=== PATIENT | male | born 2005 | race African-American/Black ===

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

== ENCOUNTER 2024-09-25 14:31 | Inpatient (IN) | payer BC, MEDICAID, SELFPAY ==
--- NOTE | ~2024-09-25 | US_ITS ---
CLINICAL HISTORY: abnormal LFTs --- Additional Notes or Special Instructions: psychosis patient US abdomen limited Comparison: None provided Findings: The visualized pancreas is normal. The aorta and inferior vena cava are normal caliber. The liver measures 17 cm in length. There is no focal liver abnormality. There is no intrahepatic bile duct dilatation. The common duct is 3 mm in diameter. The gallbladder is normal. There is no sonographic Guan sign. The main portal vein is antegrade. The right kidney is 9.9 cm in length. No ascites. IMPRESSION: There may be a mild degree of hepatomegaly. This document has been electronically signed by: Clotilde Snider MD on 09/25/2024 18:22:35
--- NOTE | ~2024-09-25 | XR_ITS ---
EXAMINATION: XR ELBOW, LEFT CLINICAL INFORMATION: Elbow swelling COMPARISON: None available. TECHNIQUE: AP, lateral, and oblique views of the left elbow. FINDINGS: No acute cortical disruption or malalignment. No lytic or blastic lesions. No subcutaneous emphysema. No gross joint effusion. No metallic or radiopaque foreign body. XR/XR elbow LT min 3V IMPRESSION: No acute fracture or dislocation. Electronically signed by: Deondre Queen MD 09/27/2024 10:05 AM EDT
--- NOTE | 2024-09-25 14:48 | MHC.CARE ---
[facility] clinician Cassidy Vernon called for an expect on patient. She attempted to assess him in the community but was unable to complete the evaluation due to the patient?s bizarre, erratic behaviors and refusal to engage. She reports this is the second crisis call involving the patient in the past two days; he was seen by Anival yesterday. Patient resides with his mother, who reports he has not slept for the past 4?5 days. When police initially arrived, patient was nonverbal and observed gripping a rosary. At one point, he began hopping on one foot with a mouthful of water, refusing to communicate. After officers convinced him to spit out the water, which he spat onto the floor, he continued to display disorganized behavior, including crying uncontrollably and reporting that he kept hearing his mother?s voice. Due to his unwillingness to engage and his disorganized presentation, clinician was unable to complete an appropriate assessment in the community. Patient was subsequently placed on a Section 12A and transported to the hospital for further evaluation. To note, mother reports patient has no history of JOSELINE.
[2024-09-25 15:01] VITALS: BP 115/58; BP 122/67; PULSE 101; PULSE 96; RESP 18; TEMP 36.8; O2SAT 100; O2SAT 97; BMI 18.7
--- NOTE | 2024-09-25 15:33 | ED.PSYCH ---
HPI - Psych General Chief Complaint: Psychiatric Symptoms Stated Complaint: PSYCHOSIS,NO SLEEP X4D,HALLUCINATIONS PER EMS Time Seen by Provider: 09/25/24 14:42 Source: patient, family, EMS and old records reviewed Mode of arrival: EMS Limitations: other (very poor historian) History of Present Illness ED Provider: AURELIA HPI Narrative: 19 yo male with PMH of bipolar, psychosis, THC induced disorder here with c/o not taking his medications for 5 months but per mom did okay he recently traveled to [place] and did okay even drove home from [employer]. He denies SI. He was seen at [facility] in the last few days given ativan PO for anxiety but refused, his LFTs were elevated at that time. Mom denies any ingestions or hx of this. He is seen at [facility] and had all of his vaccines - he had hep B in past and hep BsAB positive. He states he is fine. EMS notes he has been hallucinating and not sleeping for 4 days, he notes his mom is eating his heart. He seems to be responding to internal stimuli. Mom states she thinks he started using THC again. 5mg IV versed by EMS en route for behaviors. Per mom he has been taking Creatine and mucinex as outpatient. 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) Related Data Home Medications ?Medication ?Instructions ?Recorded ?Confirmed epinephrine 0.3 mg/0.3 mL 0.3 ml IM DAILY PRN anaphylaxis 09/25/24 09/25/24 injection, auto-injector guaifenesin 200 mg/5 mL oral liquid 400 mg PO Q6H PRN cough/congestion 09/25/24 09/25/24 lorazepam 1 mg tablet 1 mg PO TID PRN Anxiety 09/25/24 09/25/24 Allergies Allergy/AdvReac Type Severity Reaction Status Date / Time tree nut Allergy Severe Anaphylaxis Verified 09/25/24 15:04 Peanut Butter Allergy Anaphylaxis Verified 09/25/24 15:04 soy Allergy Itching Verified 09/25/24 15:04 shellfish Allergy Severe Anaphylaxis Uncoded 09/25/24 15:04 egg white Allergy Itching Uncoded 09/25/24 15:04 Review of Systems Review of Systems: ROS unable to be obtained due to psychosis PMFSH Past Medical History Attestation statement: The following information was validated with the patient. Source: old records reviewed Medical History Cannabis use with psychotic disorder Bipolar disorder with psychotic features Seasonal allergies Social History Social History Household Members: Other Household Members Other:: one room mate Housing: Other Housing Other:: Dorm Do you presently have visiting nurse or other home services: No Patient Tobacco Use Status: Never used Tobacco Smoked in Last 30 Days: No e-Cigarette/Vaping Use: Never Used Patient Interested in Nicotine Replacement: No Patient Given Instructions on How to Stop Smoking: No Second Hand Smoke Exposure: No Substance Use Type: Marijuana Currently Displaying Signs/Symptoms of Drug Intoxication Withdrawal: No Have you been hit, kicked, punched, or otherwise hurt by someone within the past year? If so, by whom?: No Do you feel safe in your current relationship?: No Current Relationship Is there a partner from a previous relationship who is making you feel unsafe now?: No Are you made to feel afraid or neglected: No Advance Directives: No Advance Directives Information Provided: No Advance Directives on File: No Do you have a plan to hurt others: No Plan Recently lost weight without trying: No Eating poorly because of decreased appetite: No Nutrition Risks: On aspiration precautions Poor oral hygiene: No service: No Sexual orientation: Straight/Heterosexual Physical Exam Vital Signs: Vital Signs: Last Vital Signs Temp 98.1 F 09/26/24 08:00 Pulse 62 09/26/24 08:00 Resp 18 09/26/24 08:00 BP 101/50 L 09/26/24 08:00 Pulse Ox 100 09/26/24 08:00 O2 Del Method Room Air 09/26/24 08:00 BMI result Body Mass Index 18.7 Appearance: Alert. Oriented X to person and place, knows it is 2024 but then stares off and cannot participate seems to be responding to internal stimuli, very protective of his back pack which mom has mild acute distress. Eyes: Pupils equal, round and reactive to light. 4mm ENT: Pharynx normal. Neck: Normal inspection. Neck supple. CVS: Normal heart rate and rhythm. Pulses normal. Respiratory: No respiratory distress. Breath sounds normal. Abdomen: Soft and nontender. Skin: Skin warm and dry. Normal skin color. Extremities: No lower extremity edema. Neuro: Oriented X 3. No motor deficit. No sensory deficit. CN2-12 intact. no clonus Medications Administered Generic Name Dose Route Start Last Admin Trade Name Freq PRN Reason Stop Dose Admin Enoxaparin Sodium 40 mg 09/26/24 09:00 09/26/24 07:59 Enoxaparin Sodium 40 Mg/0.4 Ml Syringe SUBCUT 40 mg DAILY BETITO Administration Lactated Ringer's 1,000 mls @ 200 mls/hr 09/25/24 22:15 09/26/24 08:05 Lr IVCONT 200 mls/hr .Q5H BETITO Administration Sodium Chloride 3 ml 09/26/24 00:00 09/26/24 08:08 0.9 % Sodium Chloride Flush 3 Ml Syringe IVFLUSH Not Given QSHIFT BETITO Discontinued Medications Generic Name Dose Route Start Last Admin Trade Name Freq PRN Reason Stop Dose Admin Sodium Chloride 1,000 mls @ 999 mls/hr 09/25/24 16:16 09/25/24 18:13 Ns IV 09/25/24 17:16 Infused .Q1H1M ONE Infusion Sodium Chloride 1,000 mls @ 999 mls/hr 09/25/24 16:16 09/25/24 18:13 Ns IV 09/25/24 17:16 Infused .Q1H1M ONE Infusion Sodium Chloride 1,000 mls @ 200 mls/hr 09/25/24 16:30 09/25/24 23:00 Ns IVCONT 09/25/24 21:29 Infused .Q5H BETITO Infusion Lactulose 30 gm 09/26/24 01:03 09/26/24 01:37 Lactulose 20 Gm/30 Ml Solution PO 09/26/24 01:04 30 gm ONCE STA Administration Olanzapine 10 mg 09/25/24 15:27 09/25/24 16:07 Olanzapine Odt 10 Mg Tab.Faviola ABDI 09/25/24 15:28 10 mg ONCE ONE Administration Medical Decision Making Medical Decision Making [facility] Narrative: 19 yo male with PMH of bipolar, psychosis, THC induced disorder here with c/o similar symptoms when he was hospitalized 2023 at this time he seems to be responding to internal stimuli. He has no complaints. He can anwer questions but then stares off and forgets what we were talking about. No head trauma reported. He is not taking his medications and suspect THC use. I am going to order repeat liver enzymes and start on oral zyprexa. CARE team consult ordered, S12 in place. Differential Diagnosis Differential Diagnoses: The differential diagnosis associated with the presentation includes non-compliance, psychosis, bipolar, THC abuse Admission/Observation Consideration of admission/observation: Escalation of care including admission/observation considered will admit for further workup and treatment of rhabdo Consult Healthcare Provider Management of the patient was discussed with: Hospitalist (will admit) and Behavioral Health Provider Lab Data [facility] Lab Attestation statement: I reviewed the patient's lab results. 09/26/24 06:42 09/26/24 06:42 Labs: Lab Results 09/25/24 Range/Units 15:30 WBC 7.1 (4.8-10.8) X10*3/uL RBC 4.93 (4.60-5.80) X10*6/uL Hgb 13.6 L (14.0-18.0) g/dl Hct 40.8 L (42.0-52.0) % MCV 82.8 (80.0-98.0) fL MCH 27.6 (27.0-33.0) pg MCHC 33.3 (31.0-36.0) g/dl RDW 12.5 (11.0-16.0) % Plt Count 193 D (160-400) X10*3/uL MPV 9.8 (9.4-12.4) fL Immature Gran % (Auto) 0.6 H (0.0-0.4) % Neut % (Auto) 72.2 (45-73) % Lymph % (Auto) 19.5 L (20-40) % [place] % (Auto) 5.8 (2-11) % Eos % (Auto) 1.8 (0-4) % Baso % (Auto) 0.1 (0-2) % Lymph # (Auto) 1.4 (1.2-4.9) X10*3/uL [place] # (Auto) 0.4 (0.1-1.2) X10*3/uL Eos # (Auto) 0.1 (0.0-0.4) X10*3/uL Baso # (Auto) 0.0 (0.0-0.2) X10*3/uL Abs Immat Gran (auto) 0.04 H (0.00-0.03) X10*3/uL Absolute Neuts (auto) 5.1 (2.0-8.3) x10*3/uL Absolute Nucleated RBC 0.000 (0.0-0.012) X10*3/uL Nucleated RBC % (auto) 0.0 (0.0-0.2) /100WBC Sodium 140 (135-145) mmol/L Potassium 4.5 (3.3-5.1) mmol/L Chloride 105 (96-108) mmol/L Carbon Dioxide 23 (22-29) mmol/L Anion Gap 17 (12-20) BUN 16 (9-16) mg/dL Creatinine 1.28 (0.5-1.4) mg/dL Estim Creat Clear Calc 76.7 Estimated GFR > 60 Random Glucose 76 (60-115) mg/dL Calcium 9.6 (8.4-10.2) mg/dL Magnesium 2.4 (1.6-2.6) mg/dL Total Bilirubin 2.0 H (0.0-1.0) mg/dL Direct Bilirubin 0.6 H (0.0-0.5) mg/dL AST 616 H (5-37) U/L ALT 269 H (0-40) U/L Alkaline Phosphatase 56 (39-117) U/L Ammonia 25 (13-55) umol/L Total Creatine Kinase > 27212 H (38-174) U/L Total Protein 8.0 (6.5-8.0) g/dL Albumin 5.1 H (3.5-5.0) g/dL Salicylates < 5.0 L (15-30) mg/dL Acetaminophen < 3 (<30) mcg/mL Ethyl Alcohol < 10 mg/dL Independent Interpretation I performed an independent interpretation of an: Ultrasound (no cause for patient's LFTs) Independent Historian Clinical information obtained from an independent historian. History obtained from or confirmed by: EMS External Record Review External record reviewed: Inpatient record and Outpatient record Critical Care Time Critical Care Time Critical Care Time: Yes Total Critical Care Time: 45 Attestation: Time is exclusive of separately billable procedures. Time includes: direct patient care, patient reassessment, coordination of patient care, interpretation of data (laboratory data, pulse oximetry, US), review of patient's medical records, medical consultation and documentation of patient care. IVF x 2L NS resuscitation Procedures excluded from critical care time: electrocardiography. I attest to this time spent taking care of the patient Discharge Plan Discharge Clinical Impression: Acute psychosis Rhabdomyolysis Qualifiers: Rhabdomyolysis type: non-traumatic Qualified Code(s): M62.82 - Rhabdomyolysis Patient Disposition: Admitted As Inpatient Interventions: [place]-Suicide Risk Severity Scale Last Done: 09/26/24 08:00 Admission Worksheet (ED) Last Done: 09/25/24 17:50 Discharge Date/Time: 09/25/24 20:51
[2024-09-25 15:35] LABS: MANUAL DIFF FLAG NO
[2024-09-25 15:36] LABS: Hematocrit 40.8 % (42.0-52.0); Hemoglobin 13.6 g/dl (14.0-18.0); Imm Gran Abs Auto 0.04 X10*3/uL (0.00-0.03); Imm Gran Pct Auto 0.6 % (0.0-0.4); Lymphocytes Absolute Auto 1.4 X10*3/uL (1.2-4.9); Mean Corpuscular HGB Conc 33.3 g/dl (31.0-36.0); Mean Corpuscular Hemoglobin 27.6 pg (27.0-33.0); Mean Corpuscular Volume 82.8 fL (80.0-98.0); NRBC Abs Auto 0.000 X10*3/uL (0.0-0.012); NRBC Pct Auto 0.0 /100WBC (0.0-0.2); Platelet Count 193 X10*3/uL (160-400); Red Blood Count 4.93 X10*6/uL (4.60-5.80); White Blood Count 7.1 X10*3/uL (4.8-10.8)
[2024-09-25 15:49] LABS: Ammonia 25 umol/L (13-55)
[2024-09-25 15:50] LABS: Acetaminophen LAB < 3 mcg/mL (<30); Salicylate < 5.0 mg/dL (15-30)
[2024-09-25 15:52] LABS: Alanine Aminotransferase 269 U/L (0-40); Albumin Level 5.1 g/dL (3.5-5.0); Alkaline Phosphatase 56 U/L (39-117); Anion Gap 17 (12-20); Aspartate Amino Transferase 616 U/L (5-37); Blood Urea Nitrogen 16 mg/dL (9-16); Calcium 9.6 mg/dL (8.4-10.2); Carbon Dioxide 23 mmol/L (22-29); Chloride 105 mmol/L (96-108); Creatinine Clr Calc Pharmacy 76.7; Estimated Glomerular Filt Rate > 60; Magnesium 2.4 mg/dL (1.6-2.6); Potassium 4.5 mmol/L (3.3-5.1); Sodium 140 mmol/L (135-145); Total Protein 8.0 g/dL (6.5-8.0)
[2024-09-25] MEDS: OLANZapine ODT 10 MG TAB.RAPDIS TRANSLINGU (16:07)
--- NOTE | 2024-09-25 16:27 | MHC.CARE ---
This keno writer/runner attempted to meet with pt and mom pending a CARE team consult. As this t/w was assessing pt and interviewing, Dr. Xie came over to tell pt's mom that he was being medically admitted for rhabdomyolysis and elevated liver enzymes. Assessment is no longer needed at this time.
--- NOTE | 2024-09-25 16:42 | P.HPHOSP_ITS ---
History of Present Illness Date of Service: 09/25/24 Attending physician on admission: Gabriele Lane Chief Complaint: severe rhabdomylysis hx taken from mother /ed notes :patient is poor historian hpi:19 y/o m with PMH of bipolar, psychosis, THC induced disorder here with c/o not taking his medications for 5 months but per mom did okay he recently traveled to [place] and did okay even drove home from [employer]. As per the mother he having some insomnia and feel restless from last couple weeks, He was seen at [facility] in the last few days given ativan PO for anxiety but refused, his LFTs were elevated at that time. Mom denies any ingestions or hx of this but she thinks that patient might be usingTHC again. Denies any SI. As per the patient mother he is also going to plan at [facility] a lot for muscle building.per mom he has been taking Creatine and mucinex as outpatient. He is seen at [facility] and had all of his vaccines - he had hep B in past and hep BsAB positive. He states he is fine. EMS notes he has been hallucinating and not sleeping for 4 days, he notes his mom is eating his heart. He seems to be responding to internal stimuli. And patient was asked any new symptoms-patient denies any new symptoms accept as some muscle pains. 5mg IV versed by EMS en route for behaviors. In the ED found to have CPK of 42,000 AST 616,[id number], bilirubin of 2, direct bilirubin 0.6( as per ED physician: At [facility] had AST in 900s bili 1.9 ). us:There may be a mild degree of hepatomegaly. Tylenol and salicylate level, alcohol level fine Urine drug screen-ordered. Review of Systems 2 Review of Systems: as above. Yes all other systems are reviewed and are negative [facility] Medical History Cannabis use with psychotic disorder Bipolar disorder with psychotic features Seasonal allergies Social History Household Members: Other Household Members Other:: one room mate Housing: Other Housing Other:: Dorm Do you presently have visiting nurse or other home services: No Patient Tobacco Use Status: Never used Tobacco Smoked in Last 30 Days: No e-Cigarette/Vaping Use: Never Used Patient Interested in Nicotine Replacement: No Patient Given Instructions on How to Stop Smoking: No Second Hand Smoke Exposure: No Substance Use Type: Marijuana Currently Displaying Signs/Symptoms of Drug Intoxication Withdrawal: No Have you been hit, kicked, punched, or otherwise hurt by someone within the past year? If so, by whom?: No Do you feel safe in your current relationship?: No Current Relationship Is there a partner from a previous relationship who is making you feel unsafe now?: No Are you made to feel afraid or neglected: No Advance Directives: No Advance Directives Information Provided: No Advance Directives on File: No Do you have a plan to hurt others: No Plan Recently lost weight without trying: No Eating poorly because of decreased appetite: No Nutrition Risks: On aspiration precautions Poor oral hygiene: No service: No Sexual orientation: Straight/Heterosexual Meds Allergies Allergy/AdvReac Type Severity Reaction Status Date / Time tree nut Allergy Severe Anaphylaxis Verified 09/25/24 15:04 Peanut Butter Allergy Anaphylaxis Verified 09/25/24 15:04 soy Allergy Itching Verified 09/25/24 15:04 shellfish Allergy Severe Anaphylaxis Uncoded 09/25/24 15:04 egg white Allergy Itching Uncoded 09/25/24 15:04 Active Medications: Current Medications Sodium Chloride (Ns) 1,000 mls @ 999 mls/hr IV .Q1H1M ONE Stop: 09/25/24 17:16 Last Admin: 09/25/24 16:24 Dose: 999 mls/hr Sodium Chloride (Ns) 1,000 mls @ 999 mls/hr IV .Q1H1M ONE Stop: 09/25/24 17:16 Last Admin: 09/25/24 16:25 Dose: 999 mls/hr Sodium Chloride (Ns) 1,000 mls @ 200 mls/hr IVCONT .Q5H BETITO Stop: 09/25/24 21:29 Last Admin: 09/25/24 16:29 Dose: 200 mls/hr Melatonin (Melatonin 3 Mg Tablet) 6 mg PO BEDTIME PRN PRN Reason: Insomnia Sodium Chloride (0.9 % Sodium Chloride Flush 3 Ml Syringe) 3 ml IVFLUSH QSHIFT [facility] Home Medications ?Medication ?Instructions ?Recorded ?Confirmed ?Last Taken ?Type epinephrine 0.3 mg/0.3 mL 0.3 ml IM DAILY PRN anaphyla xis 09/25/24 09/25/24 Unknown History injection, auto-injector guaifenesin 200 mg/5 mL oral liquid 400 mg PO Q6H PRN cough/congestion 09/25/24 09/25/24 09/24/24 History lorazepam 1 mg tablet 1 mg PO TID PRN Anxiety 07/09/2309/25/24 09/25/24 05:00 History Physical Exam 2 Vital Signs and Narrative: Vital Signs: Last Vital Signs Temp 98.3 F 09/25/24 15:01 Pulse 96 09/25/24 15:01 Resp 18 09/25/24 15:01 BP 115/58 L 09/25/24 15:01 Pulse Ox 100 09/25/24 15:01 O2 Del Method Room Air 09/25/24 15:01 BMI result Body Mass Index 18.7 Appearance: Alert.? Oriented-alert oriented to person and place, nose ear is 2024, seems stare off once ask more questions . Eyes: Pupils equal, round and reactive to light. ENT: Pharynx normal. cvs: rrr, [id number]. res: Air entry fair, no rales or wheezing abd: no rebound or guarding ,nt, bs present. ext pulses present , no cyanosis . neuro: nonfocal, moves all extremities Results Labs 09/26/24 06:42 09/26/24 06:42 Labs: Laboratory Results - last 24 hr 09/25/24 15:30 MCV 82.8 MCH 27.6 MCHC 33.3 RDW 12.5 Plt Count 193 D MPV 9.8 Immature Gran % (Auto) 0.6 H Neut % (Auto) 72.2 Lymph % (Auto) 19.5 L [place] % (Auto) 5.8 Eos % (Auto) 1.8 Baso % (Auto) 0.1 Lymph # (Auto) 1.4 [place] # (Auto) 0.4 Eos # (Auto) 0.1 Baso # (Auto) 0.0 Abs Immat Gran (auto) 0.04 H Absolute Neuts (auto) 5.1 Absolute Nucleated RBC 0.000 Nucleated RBC % (auto) 0.0 Anion Gap 17 Estim Creat Clear Calc 76.7 Estimated GFR > 60 Random Glucose 76 Calcium 9.6 Magnesium 2.4 Total Bilirubin 2.0 H Direct Bilirubin 0.6 H AST 616 H ALT 269 H Alkaline Phosphatase 56 Ammonia 25 Total Creatine Kinase > 10633 H Total Protein 8.0 Albumin 5.1 H Salicylates < 5.0 L Acetaminophen < 3 Ethyl Alcohol < 10 Assessment and Plan (1) Rhabdomyolysis: Qualifiers: Rhabdomyolysis type: non-traumatic Qualified Code(s): M62.82 - Rhabdomyolysis Status: Acute Plan 19 y/o m with PMH of bipolar, psychosis, THC induced disorder-came to the hospital because of elevated CPK, elevated liver enzymes. Severe rhabdomyolysis: Received IV 2 L fluid in the ED initially, also started on now normal saline 200 mL/hour Continue to monitor BMP, CPK Q 6 hours Renal function so far fine. Nephro evaluation added. elevated Lft's : unclear etiology/may be related to rhabdomylysis as per ed -improving from [place] labs Tylenol, alcohol, salsalate level fine. seen at [facility] and had all of his vaccines - he had hep B in past and hep BsAB positive. added repeat cmp, pt /inr ,ammonia levels GI evaluation hx of bipolar : was on multiple meds , stopped taking them Please see psych note from last year Psych evaluation added DVT prophylaxis: SubQ Lovenox Ongoing need: Severe rhabdomyolysis need IV fluid, close monitoring of liver function tests, electrolytes, need Nephro, GI, psych input for above. Quality Stroke Does the patient have a stroke diagnosis?: No VTE Prior VTE?: No VTE Risk Level:: Medical - moderate - high VTE Device Contraindication: N/A - Device Ordered VTE Drug Contraindication: N/A - Med Ordered
--- NOTE | 2024-09-25 17:56 | PHA.MEDREC ---
Addendum entered by Jason Hitchcock [facility] 09/25/24 18:03: med rec reviewed Original Note: Pharmacy Consult ? Medication Reconciliation Pharmacy has completed the medication reconciliation. Spoke with patients mother at bedside to confirm.
[2024-09-25 19:41] LABS: Ammonia 94 umol/L (13-55)
[2024-09-25 19:42] LABS: INTERNATIONAL NORM RATIO 1.1 (0.9-1.1); Prothrombin Time 12.8 SEC (10.9-12.4)
[2024-09-25 19:51] VITALS: BP 123/97; PULSE 112; RESP 12; TEMP 36.4; O2SAT 99
[2024-09-25 20:00] LABS: Alanine Aminotransferase 219 U/L (0-40); Albumin Level 4.1 g/dL (3.5-5.0); Alkaline Phosphatase 47 U/L (39-117); Anion Gap 15 (12-20); Aspartate Amino Transferase 478 U/L (5-37); Blood Urea Nitrogen 14 mg/dL (9-16); Calcium 8.3 mg/dL (8.4-10.2); Carbon Dioxide 18 mmol/L (22-29); Chloride 112 mmol/L (96-108); Creatinine Clr Calc Pharmacy 88.5; Estimated Glomerular Filt Rate > 60; Potassium 5.0 mmol/L (3.3-5.1); Sodium 140 mmol/L (135-145); Total Protein 6.7 g/dL (6.5-8.0)
[2024-09-25 20:40] VITALS: BMI 19.6
[2024-09-25 21:02] VITALS: BP 116/63; PULSE 76; RESP 18; TEMP 36.8; O2SAT 100
[2024-09-25 21:26] LABS: Appearance Urine Clear; Glucose Urine UA Negative (Negative); PH 7.0 (5.0-9.0); Specific Gravity - Urine 1.010 (1.005-1.025)
[2024-09-25 21:35] LABS: Cannabinoid Screen Urine Not Detected (Not Detect)
[2024-09-25] MEDS: Lactated Ringers 1,000 ML 200 ML IVCONT (23:13)
[2024-09-25 23:35] VITALS: BP 112/54; PULSE 61; RESP 18; TEMP 36.7; O2SAT 98
[2024-09-26 00:08] LABS: Alanine Aminotransferase 176 U/L (0-40); Albumin Level 3.6 g/dL (3.5-5.0); Alkaline Phosphatase 39 U/L (39-117); Anion Gap 11 (12-20); Aspartate Amino Transferase 344 U/L (5-37); Blood Urea Nitrogen 14 mg/dL (9-16); Calcium 7.9 mg/dL (8.4-10.2); Carbon Dioxide 22 mmol/L (22-29); Chloride 113 mmol/L (96-108); Creatinine Clr Calc Pharmacy 109.7; Estimated Glomerular Filt Rate > 60; Potassium 4.0 mmol/L (3.3-5.1); Sodium 142 mmol/L (135-145); Total Protein 5.5 g/dL (6.5-8.0)
[2024-09-26 03:42] VITALS: BP 107/53; PULSE 70; RESP 16; TEMP 36.9; O2SAT 99
[2024-09-26] MEDS: Lactated Ringers 1,000 ML 200 ML IVCONT ×5 (03:43→23:18)
[2024-09-26 06:49] LABS: MANUAL DIFF FLAG NO
[2024-09-26 07:00] LABS: Ammonia 22 umol/L (13-55)
[2024-09-26 07:04] LABS: Hematocrit 35.1 % (42.0-52.0); Hemoglobin 11.3 g/dl (14.0-18.0); Imm Gran Abs Auto 0.02 X10*3/uL (0.00-0.03); Imm Gran Pct Auto 0.4 % (0.0-0.4); Lymphocytes Absolute Auto 1.6 X10*3/uL (1.2-4.9); Mean Corpuscular HGB Conc 32.2 g/dl (31.0-36.0); Mean Corpuscular Hemoglobin 27.4 pg (27.0-33.0); Mean Corpuscular Volume 85.2 fL (80.0-98.0); NRBC Abs Auto 0.000 X10*3/uL (0.0-0.012); NRBC Pct Auto 0.0 /100WBC (0.0-0.2); Platelet Count 149 X10*3/uL (160-400); Red Blood Count 4.12 X10*6/uL (4.60-5.80); White Blood Count 4.8 X10*3/uL (4.8-10.8)
[2024-09-26 07:09] LABS: Alanine Aminotransferase 176 U/L (0-40); Albumin Level 3.7 g/dL (3.5-5.0); Alkaline Phosphatase 39 U/L (39-117); Aspartate Amino Transferase 284 U/L (5-37); Total Protein 5.5 g/dL (6.5-8.0)
[2024-09-26 07:10] LABS: Alanine Aminotransferase 171 U/L (0-40); Albumin Level 3.7 g/dL (3.5-5.0); Alkaline Phosphatase 38 U/L (39-117); Anion Gap 11 (12-20); Aspartate Amino Transferase 282 U/L (5-37); Blood Urea Nitrogen 13 mg/dL (9-16); Calcium 8.2 mg/dL (8.4-10.2); Carbon Dioxide 25 mmol/L (22-29); Chloride 110 mmol/L (96-108); Cholesterol 89 mg/dL (<200); Creatinine Clr Calc Pharmacy 98.2; Estimated Glomerular Filt Rate > 60; HDL Cholesterol 43 mg/dL (>40); Magnesium 2.0 mg/dL (1.6-2.6); Potassium 4.1 mmol/L (3.3-5.1); Sodium 142 mmol/L (135-145); Total Protein 5.4 g/dL (6.5-8.0); Triglycerides 34 mg/dL (<150)
[2024-09-26 08:00] VITALS: BP 101/50; PULSE 62; RESP 18; TEMP 36.7; O2SAT 100
--- NOTE | 2024-09-26 09:35 | MHC.CM.PN ---
Addendum entered by Opal Her 09/26/24 16:06: This CM attempted to complete CM intake with pt, he was awake but was experiencing increased anxiety, unable to complete CM intake assessment at this time. Original Note: This CM attempted to meet with pt, pt sleeping with sitter at bedside, unable to engage in conversation at this time, will attempt to meet with pt at a later time.
[2024-09-26 12:00] VITALS: BP 118/63; PULSE 91; RESP 18; TEMP 36.2; O2SAT 97
--- NOTE | 2024-09-26 12:33 | P.CONNP_ITS ---
History of Present Illness Reason for Consult Consult date: 09/26/24 Chief Complaint Chief complaint: Rhabdomylysis History of Present Illness Narrative: 19 y/o m with a medical history of bipolar disorder, psychosis, THC-induced disorder. Presented 09/25 with ongoing muscle pain and reportedly not taking his psychiatric medications for five months. Reportedly has been taking creatinine supplements and mucinex and spending a great deal of time at the gym. Nephrology consulted for rhabdomyolysis Patient has been receiving IVF, CK initially >42K on presentation yesterday, today is ~25,000. Patient at bedside states he is worried about his liver. States he is not sure about muscle pain or other concerns. Patient overwhelmed and reports he would like to see his sisters and speak to his PCP, which bedside nursing is helping him arrange. Review of Systems Review of Systems Yes all other systems are reviewed and are negative PMFSH Past Medical History Medical History Cannabis use with psychotic disorder Bipolar disorder with psychotic features Seasonal allergies Social History Social History Household Members: Other Household Members Other:: one room mate Housing: Other Housing Other:: Dorm Do you presently have visiting nurse or other home services: No Patient Tobacco Use Status: Never used Tobacco Smoked in Last 30 Days: No e-Cigarette/Vaping Use: Never Used Patient Interested in Nicotine Replacement: No Patient Given Instructions on How to Stop Smoking: No Second Hand Smoke Exposure: No Substance Use Type: Marijuana Currently Displaying Signs/Symptoms of Drug Intoxication Withdrawal: No Have you been hit, kicked, punched, or otherwise hurt by someone within the past year? If so, by whom?: No Do you feel safe in your current relationship?: No Current Relationship Is there a partner from a previous relationship who is making you feel unsafe now?: No Are you made to feel afraid or neglected: No Advance Directives: No Advance Directives Information Provided: No Advance Directives on File: No Do you have a plan to hurt others: No Plan Recently lost weight without trying: No Eating poorly because of decreased appetite: No Nutrition Risks: On aspiration precautions Poor oral hygiene: No service: No Sexual orientation: Straight/Heterosexual Meds Allergies Allergy/AdvReac Type Severity Reaction Status Date / Time tree nut Allergy Severe Anaphylaxis Verified 09/25/24 15:04 Peanut Butter Allergy Anaphylaxis Verified 09/25/24 15:04 soy Allergy Itching Verified 09/25/24 15:04 shellfish Allergy Severe Anaphylaxis Uncoded 09/25/24 15:04 egg white Allergy Itching Uncoded 09/25/24 15:04 Active Medications: Current Medications Enoxaparin Sodium (Enoxaparin Sodium 40 Mg/0.4 Ml Syringe) 40 mg SUBCUT DAILY [facility] Last Admin: 09/26/24 07:59 Dose: 40 mg Haloperidol (Haloperidol 5 Mg Tablet) 5 mg PO TID PRN PRN Reason: severe agitation Haloperidol (Haloperidol 5 Mg Tablet) 5 mg PO BID [facility] Lactated Ringer's (Lr) 1,000 mls @ 200 mls/hr IVCONT .Q5H [facility] Last Admin: 09/26/24 08:05 Dose: 200 mls/hr Lorazepam (Lorazepam 1 Mg Tablet) 1 mg PO Q6H PRN PRN Reason: severe anxiety Melatonin (Melatonin 3 Mg Tablet) 6 mg PO BEDTIME PRN PRN Reason: Insomnia Sodium Chloride (0.9 % Sodium Chloride Flush 3 Ml Syringe) 3 ml IVFLUSH QSHIFT [facility] Last Admin: 09/26/24 08:08 Dose: Not Given Home Medications ?Medication ?Instructions ?Recorded ?Confirmed ?Last Taken ?Type epinephrine 0.3 mg/0.3 mL 0.3 ml IM DAILY PRN anaphyla xis 09/25/24 09/25/24 Unknown History injection, auto-injector guaifenesin 200 mg/5 mL oral liquid 400 mg PO Q6H PRN cough/congestion 09/25/24 09/25/24 09/24/24 History lorazepam 1 mg tablet 1 mg PO TID PRN Anxiety 07/2 09/2309/25/24 09/25/24 05:00 History Physical Exam Vital Signs: Last Vital Signs Temp 97.1 F 09/26/24 12:00 Pulse 91 09/26/24 12:00 Resp 18 09/26/24 12:00 BP 118/63 09/26/24 12:00 Pulse Ox 97 09/26/24 12:00 O2 Del Method Room Air 09/26/24 12:00 BMI result Body Mass Index 19.6 Const General: no acute distress, alert and awake Resp Effort & Inspection: normal respiratory effort and able to speak in complete sentences Auscultation: clear to auscultation bilaterally Cardio Rate: regular rate Rhythm: regular rhythm Heart sounds: S1 normal heart sound present and S2 normal heart sound present GI Palpation (GI): Soft to palpation and nontender Skin Rashes: no rashes Extrem General: No edema Results Lab Results 09/26/24 06:42 09/26/24 06:42 Lab results: Chemistry 09/25/24 09/25/24 09/25/24 15:30 19:26 23:45 Sodium 140 140 142 Potassium 4.5 5.0 4.0 Carbon Dioxide 23 18 L 22 BUN 16 14 14 Creatinine 1.28 1.11 0.94 Calcium 9.6 8.3 L D 7.9 L 09/26/24 06:42 Sodium 142 Potassium 4.1 Carbon Dioxide 25 BUN 13 Creatinine 1.05 Calcium 8.2 L Hematology 09/25/24 09/26/24 15:30 06:42 WBC 7.1 4.8 Hgb 13.6 L 11.3 L Plt Count 193 D 149 L Urinalysis 09/25/24 21:13 Urine Color Yellow Urine Appearance Clear Urine pH 7.0 Ur Specific [place] 1.010 Urine Protein Negative Urine Glucose (UA) Negative Urine Ketones 15 Urine Blood Negative Urine Nitrite Negative Ur Leukocyte Esterase Negative Assessment and Plan (1) Rhabdomyolysis: Qualifiers: Rhabdomyolysis type: non-traumatic Qualified Code(s): M62.82 - Rhabdomyolysis Status: Acute Plan Rhabdomyolysis likely secondary to overexertion, ?non-prescribed supplements. CK levels are improving with IVF, renal function remains normal recommend continuing to hydrate patient will sign off, happy to follow up if any changes/new concerns arise. Discussed with Dr Gonzalez. Procedures Date of Service Date of Service: 09/26/24
--- NOTE | 2024-09-26 15:32 | HO.PM.IMPN ---
Subjective Subjective Date of Service: 09/26/24 Interval History: mood dis rhabdomylysis Review of Systems seems anxious no other newc/o. Review of Systems: Yes all other systems are reviewed and are negative Physical Exam Exam: Exam: Appearance: seems similar. Eyes: Pupils equal, round and reactive to light. cvs: rrr, [id number]. res: Air entry fair, no rales or wheezing abd: no rebound or guarding ,nt, bs present. ext pulses present , no cyanosis . neuro: nonfocal, moves all extremities. Vital Signs: Vital Signs: Last Vital Signs Temp 97.1 F 09/26/24 12:00 Pulse 91 09/26/24 12:00 Resp 18 09/26/24 12:00 BP 118/63 09/26/24 12:00 Pulse Ox 97 09/26/24 12:00 O2 Del Method Room Air 09/26/24 12:00 BMI result Body Mass Index 19.6 Objective Data Active Medications Enoxaparin Sodium (Enoxaparin Sodium 40 Mg/0.4 Ml Syringe) 40 mg SUBCUT DAILY [facility] Last Admin: 09/26/24 07:59 Dose: 40 mg Documented By: VIJAYA Haloperidol (Haloperidol 5 Mg Tablet) 5 mg PO TID PRN PRN Reason: severe agitation Last Admin: 09/26/24 15:17 Dose: 5 mg Documented By: MARCUS Haloperidol (Haloperidol 5 Mg Tablet) 5 mg PO BID [facility] Lactated Ringer's (Lr) 1,000 mls @ 200 mls/hr IVCONT .Q5H [facility] Last Admin: 09/26/24 12:59 Dose: 200 mls/hr Documented By: MARCUS Lorazepam (Lorazepam 1 Mg Tablet) 1 mg PO Q6H PRN PRN Reason: severe anxiety Last Admin: 09/26/24 12:58 Dose: 1 mg Documented By: MARCUS Melatonin (Melatonin 3 Mg Tablet) 6 mg PO BEDTIME PRN PRN Reason: Insomnia Sodium Chloride (0.9 % Sodium Chloride Flush 3 Ml Syringe) 3 ml IVFLUSH QSHIFT [facility] Last Admin: 09/26/24 08:08 Dose: Not Given Documented By: VIJAYA Non-Admin Reason: IV Running Labs 09/26/24 06:42 09/26/24 06:42 Labs: Laboratory Results - last 24 hr 09/25/24 09/25/24 09/25/24 15:30 19:26 20:58 MCV 82.8 MCH 27.6 MCHC 33.3 RDW 12.5 Plt Count 193 D MPV 9.8 Immature Gran % (Auto) 0.6 H Neut % (Auto) 72.2 Lymph % (Auto) 19.5 L [place] % (Auto) 5.8 Eos % (Auto) 1.8 Baso % (Auto) 0.1 Lymph # (Auto) 1.4 [place] # (Auto) 0.4 Eos # (Auto) 0.1 Baso # (Auto) 0.0 Abs Immat Gran (auto) 0.04 H Absolute Neuts (auto) 5.1 Absolute Nucleated RBC 0.000 Nucleated RBC % (auto) 0.0 PT 12.8 H INR 1.1 Anion Gap 17 15 Estim Creat Clear Calc 76.7 88.5 Estimated GFR > 60 > 60 Random Glucose 76 76 Fasting Glucose Calcium 9.6 8.3 L D Magnesium 2.4 Total Bilirubin 2.0 H 1.7 H Direct Bilirubin 0.6 H AST 616 H 478 H ALT 269 H 219 H Alkaline Phosphatase 56 47 Ammonia 25 94 H Total Creatine Kinase > 29905 H 28953 H Total Protein 8.0 6.7 Albumin 5.1 H 4.1 Triglycerides Cholesterol LDL Cholesterol, Calc HDL Cholesterol Urine Color Urine Appearance Urine pH Ur Specific [place] Urine Protein Urine Glucose (UA) Urine Ketones Urine Blood Urine Nitrite Ur Leukocyte Esterase Salicylates < 5.0 L Urine Opiates Screen Not Detected Ur Buprenorphine Scrn Not Detected Ur Oxycodone Screen Not Detected Urine Methadone Screen Not Detected Urine Fentanyl Screen Not Detected Acetaminophen < 3 Ur Barbiturates Screen Not Detected Ur Phencyclidine Scrn Not Detected Ur Amphetamines Screen Not Detected U Benzodiazepines Scrn POSITIVE H Urine Cocaine Screen Not Detected U Marijuana (THC) Screen Not Detected Ethyl Alcohol < 10 09/25/24 09/25/24 09/26/24 21:13 23:45 06:42 MCV 85.2 MCH 27.4 MCHC 32.2 RDW 12.6 Plt Count 149 L MPV 9.8 Immature Gran % (Auto) 0.4 Neut % (Auto) 53.2 Lymph % (Auto) 33.2 [place] % (Auto) 6.2 Eos % (Auto) 6.6 H Baso % (Auto) 0.4 Lymph # (Auto) 1.6 [place] # (Auto) 0.3 Eos # (Auto) 0.3 Baso # (Auto) 0.0 Abs Immat Gran (auto) 0.02 Absolute Neuts (auto) 2.6 Absolute Nucleated RBC 0.000 Nucleated RBC % (auto) 0.0 PT INR Anion Gap 11 L 11 L Estim Creat Clear Calc 109.7 98.2 Estimated GFR > 60 > 60 Random Glucose 81 Fasting Glucose 102 H Calcium 7.9 L 8.2 L Magnesium 2.0 Total Bilirubin 1.6 H 1.5 H Direct Bilirubin AST 344 H ALT 176 H Alkaline Phosphatase 39 Ammonia Total Creatine Kinase 56002 H Total Protein 5.5 L Albumin 3.6 Triglycerides Cholesterol LDL Cholesterol, Calc HDL Cholesterol Urine Color Yellow Urine Appearance Clear Urine pH 7.0 Ur Specific [place] 1.010 Urine Protein Negative Urine Glucose (UA) Negative Urine Ketones 15 Urine Blood Negative Urine Nitrite Negative Ur Leukocyte Esterase Negative Salicylates Urine Opiates Screen Ur Buprenorphine Scrn Ur Oxycodone Screen Urine Methadone Screen Urine Fentanyl Screen Acetaminophen Ur Barbiturates Screen Ur Phencyclidine Scrn Ur Amphetamines Screen U Benzodiazepines Scrn Urine Cocaine Screen U Marijuana (THC) Screen Ethyl Alcohol 09/26/24 09/26/24 09/26/24 06:42 06:42 06:42 MCV MCH MCHC RDW Plt Count MPV Immature Gran % (Auto) Neut % (Auto) Lymph % (Auto) [place] % (Auto) Eos % (Auto) Baso % (Auto) Lymph # (Auto) [place] # (Auto) Eos # (Auto) Baso # (Auto) Abs Immat Gran (auto) Absolute Neuts (auto) Absolute Nucleated RBC Nucleated RBC % (auto) PT INR Anion Gap Estim Creat Clear Calc Estimated GFR Random Glucose Fasting Glucose Calcium Magnesium Total Bilirubin 1.4 H Direct Bilirubin 0.4 AST 284 H 282 H ALT 176 H 171 H Alkaline Phosphatase 39 Ammonia Total Creatine Kinase Total Protein Albumin Triglycerides Cholesterol LDL Cholesterol, Calc HDL Cholesterol Urine Color Urine Appearance Urine pH Ur Specific [place] Urine Protein Urine Glucose (UA) Urine Ketones Urine Blood Urine Nitrite Ur Leukocyte Esterase Salicylates Urine Opiates Screen Ur Buprenorphine Scrn Ur Oxycodone Screen Urine Methadone Screen Urine Fentanyl Screen Acetaminophen Ur Barbiturates Screen Ur Phencyclidine Scrn Ur Amphetamines Screen U Benzodiazepines Scrn Urine Cocaine Screen U Marijuana (THC) Screen Ethyl Alcohol 09/26/24 09/26/24 09/26/24 06:42 06:42 06:42 MCV MCH MCHC RDW Plt Count MPV Immature Gran % (Auto) Neut % (Auto) Lymph % (Auto) [place] % (Auto) Eos % (Auto) Baso % (Auto) Lymph # (Auto) [place] # (Auto) Eos # (Auto) Baso # (Auto) Abs Immat Gran (auto) Absolute Neuts (auto) Absolute Nucleated RBC Nucleated RBC % (auto) PT INR Anion Gap Estim Creat Clear Calc Estimated GFR Random Glucose Fasting Glucose Calcium Magnesium Total Bilirubin Direct Bilirubin AST ALT Alkaline Phosphatase 38 L Ammon[place] 22 Total Creatine Kinase 74369 H Total Protein 5.5 L 5.4 L Albumin 3.7 3.7 Triglycerides 34 Cholesterol 89 LDL Cholesterol, Calc 40 HDL Cholesterol 43 Urine Color Urine Appearance Urine pH Ur Specific [place] Urine Protein Urine Glucose (UA) Urine Ketones Urine Blood Urine Nitrite Ur Leukocyte Esterase Salicylates Urine Opiates Screen Ur Buprenorphine Scrn Ur Oxycodone Screen Urine Methadone Screen Urine Fentanyl Screen Acetaminophen Ur Barbiturates Screen Ur Phencyclidine Scrn Ur Amphetamines Screen U Benzodiazepines Scrn Urine Cocaine Screen U Marijuana (THC) Screen Ethyl Alcohol Assessment and Plan (1) Bipolar disorder with psychotic features: Status: Acute (2) Rhabdomyolysis: Status: Acute (3) Elevated liver enzymes: Status: Acute Assessment and Plan: 19 y/o m with PMH of bipolar, psychosis, THC induced disorder-came to the hospital because of elevated CPK, elevated liver enzymes. Severe rhabdomyolysis: Received IV 2 L fluid in the ED initially, also started on now normal saline 200 mL/hour Renal function so far fine. Nephro evaluation -recommended continue IV fluid normal saline 200 mL/hour, monitor CPK. elevated Lft's : unclear etiology/may be related to rhabdomylysis as per ed -improving from [facility] labs Tylenol, alcohol, salsalate level fine. seen at [facility] and had all of his vaccines - he had hep B in past and hep BsAB positive. LFTs improving, ammonia level also improving GI evaluation pending hx of bipolar : was on multiple meds , stopped taking them Please see psych note from last year Psych evaluation added- added Haldol and Ativan p.r.n. DVT prophylaxis: SubQ Lovenox Ongoing need: Severe rhabdomyolysis need IV fluid, close monitoring of liver function tests, electrolytes, need Nephro, GI, psych input for above. Quality Stroke Does the patient have a stroke diagnosis?: No VTE Prior VTE?: No VTE Risk Level:: Medical - moderate - high VTE Device Contraindication: N/A - Device Ordered VTE Drug Contraindication: N/A - Med Ordered
--- NOTE | 2024-09-26 15:32 | PM.PSYCN ---
History of Present Illness Date of Service: 09/26/24 Chief Complaint: Rhabdomylysis Reason for Consult: psychosis/respnding to internal stimuli Requesting physician: Gabriele Lane Sources of Information: patient interviewed, chart reviewed and crisis/core team assessment reviewed Additional Sources of Information: Family- sister Javier Covarrubias during visit HPI Narrative: Patient is 19 y/o m with PMH of bipolar, psychosis, THC induced disorder-came to the hospital because of elevated CPK, elevated liver enzymes. Per the attending on medical floor, patient has been taking Mucinex and creatine seen at [facility]. He has severe rhabdomyolysis, getting IV fluid. Patient appears to be psychotic and responding to internal stimuli. Past Psychiatric History: He has psychiatric admission one at [facility]- last year. Medical Evaluation Reviewed: Yes Personal & Social History: He is single. Have very support family. Family hx of mental illness. Sister dx with bipolar Review of Systems Review of Systems Elevated liver enzymes and rhabdomyolysis Yes all other systems are reviewed and are negative [facility] Medical History Cannabis use with psychotic disorder Bipolar disorder with psychotic features Seasonal allergies Family History: Father-alcoholism, personality disordered Paternal [id number] when pt was age 12 Social History: Pt unable to provide hx Mother is very supportive One older sister One twin sister Parents 2.5 years ago Pt has no contact with father who has a hx of alcohol use and personality disorder Student, [employer], [employer] major-Grades have dropped significantly Works 2 jobs, one at [employer], one at [employer]. Substance History: report hx of using THC, last use a month or couple months ago. Hx of THC induced psychosis. Denies current substance use. Had some alcohol intake during vacation with family more than a week ago. Trauma History: Not asked due to pt level of distress Diagnostics Vital Signs (24Hr): Vital Signs - 24 hr 09/25/24 19:51 09/25/24 21:02 09/25/24 23:35 Temperature 97.6 F 98.3 F 98.1 F Pulse Rate 112 H 76 61 Respiratory Rate 12 18 18 Blood Pressure 123/97 H 116/63 112/54 L Pulse Oximetry 99 100 98 Oxygen Delivery Method Room Air Room Air Room Air 09/26/24 03:42 09/26/24 08:00 09/26/24 12:00 Temperature 98.5 F 98.1 F 97.1 F Pulse Rate 70 62 91 Respiratory Rate 16 18 18 Blood Pressure 107/53 L 101/50 L 118/63 Pulse Oximetry 99 100 97 Oxygen Delivery Method Room Air Room Air Room Air BMI result Body Mass Index 19.6 Labs 09/26/24 06:42 09/26/24 06:42 Labs: Laboratory Results - last 48 hr 09/25/24 09/25/24 09/25/24 15:30 19:26 20:58 WBC 7.1 RBC 4.93 Hgb 13.6 L Hct 40.8 L MCV 82.8 MCH 27.6 MCHC 33.3 RDW 12.5 Plt Count 193 D MPV 9.8 Immature Gran % (Auto) 0.6 H Neut % (Auto) 72.2 Lymph % (Auto) 19.5 L [place] % (Auto) 5.8 Eos % (Auto) 1.8 Baso % (Auto) 0.1 Lymph # (Auto) 1.4 [place] # (Auto) 0.4 Eos # (Auto) 0.1 Baso # (Auto) 0.0 Abs Immat Gran (auto) 0.04 H Absolute Neuts (auto) 5.1 Absolute Nucleated RBC 0.000 Nucleated RBC % (auto) 0.0 PT 12.8 H INR 1.1 Sodium 140 140 Potassium 4.5 5.0 Chloride 105 112 H Carbon Dioxide 23 18 L Anion Gap 17 15 BUN 16 14 Creatinine 1.28 1.11 Estim Creat Clear Calc 76.7 88.5 Estimated GFR > 60 > 60 Random Glucose 76 76 Fasting Glucose Calcium 9.6 8.3 L D Magnesium 2.4 Total Bilirubin 2.0 H 1.7 H Direct Bilirubin 0.6 H AST 616 H 478 H ALT 269 H 219 H Alkaline Phosphatase 56 47 Ammonia 25 94 H Total Creatine Kinase > 63370 H 12316 H Total Protein 8.0 6.7 Albumin 5.1 H 4.1 Triglycerides Cholesterol LDL Cholesterol, Calc HDL Cholesterol Urine Color Urine Appearance Urine pH Ur Specific [place] Urine Protein Urine Glucose (UA) Urine Ketones Urine Blood Urine Nitrite Ur Leukocyte Esterase Salicylates < 5.0 L Urine Opiates Screen Not Detected Ur Buprenorphine Scrn Not Detected Ur Oxycodone Screen Not Detected Urine Methadone Screen Not Detected Urine Fentanyl Screen Not Detected Acetaminophen < 3 Ur Barbiturates Screen Not Detected Ur Phencyclidine Scrn Not Detected Ur Amphetamines Screen Not Detected U Benzodiazepines Scrn POSITIVE H Urine Cocaine Screen Not Detected U Marijuana (THC) Screen Not Detected Ethyl Alcohol < 10 09/25/24 09/25/24 09/26/24 21:13 23:45 06:42 WBC 4.8 RBC 4.12 L Hgb 11.3 L Hct 35.1 L MCV 85.2 MCH 27.4 MCHC 32.2 RDW 12.6 Plt Count 149 L MPV 9.8 Immature Gran % (Auto) 0.4 Neut % (Auto) 53.2 Lymph % (Auto) 33.2 [place] % (Auto) 6.2 Eos % (Auto) 6.6 H Baso % (Auto) 0.4 Lymph # (Auto) 1.6 [place] # (Auto) 0.3 Eos # (Auto) 0.3 Baso # (Auto) 0.0 Abs Immat Gran (auto) 0.02 Absolute Neuts (auto) 2.6 Absolute Nucleated RBC 0.000 Nucleated RBC % (auto) 0.0 PT INR Sodium 142 142 Potassium 4.0 4.1 Chloride 113 H 110 H Carbon Dioxide 22 25 Anion Gap 11 L 11 L BUN 14 13 Creatinine 0.94 1.05 Estim Creat Clear Calc 109.7 98.2 Estimated GFR > 60 > 60 Random Glucose 81 Fasting Glucose 102 H Calcium 7.9 L 8.2 L Magnesium 2.0 Total Bilirubin 1.6 H 1.5 H Direct Bilirubin AST 344 H ALT 176 H Alkaline Phosphatase 39 Ammonia Total Creatine Kinase 96984 H Total Protein 5.5 L Albumin 3.6 Triglycerides Cholesterol LDL Cholesterol, Calc HDL Cholesterol Urine Color Yellow Urine Appearance Clear Urine pH 7.0 Ur Specific [place] 1.010 Urine Protein Negative Urine Glucose (UA) Negative Urine Ketones 15 Urine Blood Negative Urine Nitrite Negative Ur Leukocyte Esterase Negative Salicylates Urine Opiates Screen Ur Buprenorphine Scrn Ur Oxycodone Screen Urine Methadone Screen Urine Fentanyl Screen Acetaminophen Ur Barbiturates Screen Ur Phencyclidine Scrn Ur Amphetamines Screen U Benzodiazepines Scrn Urine Cocaine Screen U Marijuana (THC) Screen Ethyl Alcohol 09/26/24 09/26/24 09/26/24 06:42 06:42 06:42 WBC RBC Hgb Hct MCV MCH MCHC RDW Plt Count MPV Immature Gran % (Auto) Neut % (Auto) Lymph % (Auto) [place] % (Auto) Eos % (Auto) Baso % (Auto) Lymph # (Auto) [place] # (Auto) Eos # (Auto) Baso # (Auto) Abs Immat Gran (auto) Absolute Neuts (auto) Absolute Nucleated RBC Nucleated RBC % (auto) PT INR Sodium Potassium Chloride Carbon Dioxide Anion Gap BUN Creatinine Estim Creat Clear Calc Estimated GFR Random Glucose Fasting Glucose Calcium Magnesium Total Bilirubin 1.4 H Direct Bilirubin 0.4 AST 284 H 282 H ALT 176 H 171 H Alkaline Phosphatase 39 Ammonia Total Creatine Kinase Total Protein Albumin Triglycerides Cholesterol LDL Cholesterol, Calc HDL Cholesterol Urine Color Urine Appearance Urine pH Ur Specific [place] Urine Protein Urine Glucose (UA) Urine Ketones Urine Blood Urine Nitrite Ur Leukocyte Esterase Salicylates Urine Opiates Screen Ur Buprenorphine Scrn Ur Oxycodone Screen Urine Methadone Screen Urine Fentanyl Screen Acetaminophen Ur Barbiturates Screen Ur Phencyclidine Scrn Ur Amphetamines Screen U Benzodiazepines Scrn Urine Cocaine Screen U Marijuana (THC) Screen Ethyl Alcohol 09/26/24 09/26/24 09/26/24 06:42 06:42 06:42 WBC RBC Hgb Hct MCV MCH MCHC RDW Plt Count MPV Immature Gran % (Auto) Neut % (Auto) Lymph % (Auto) [place] % (Auto) Eos % (Auto) Baso % (Auto) Lymph # (Auto) [place] # (Auto) Eos # (Auto) Baso # (Auto) Abs Immat Gran (auto) Absolute Neuts (auto) Absolute Nucleated RBC Nucleated RBC % (auto) PT INR Sodium Potassium Chloride Carbon Dioxide Anion Gap BUN Creatinine Estim Creat Clear Calc Estimated GFR Random Glucose Fasting Glucose Calcium Magnesium Total Bilirubin Direct Bilirubin AST ALT Alkaline Phosphatase 38 L Ammonia 22 Total Creatine Kinase 77758 H Total Protein 5.5 L 5.4 L Albumin 3.7 3.7 Triglycerides 34 Cholesterol 89 LDL Cholesterol, Calc 40 HDL Cholesterol 43 Urine Color Urine Appearance Urine pH Ur Specific [place] Urine Protein Urine Glucose (UA) Urine Ketones Urine Blood Urine Nitrite Ur Leukocyte Esterase Salicylates Urine Opiates Screen Ur Buprenorphine Scrn Ur Oxycodone Screen Urine Methadone Screen Urine Fentanyl Screen Acetaminophen Ur Barbiturates Screen Ur Phencyclidine Scrn Ur Amphetamines Screen U Benzodiazepines Scrn Urine Cocaine Screen U Marijuana (THC) Screen Ethyl Alcohol Mental Status Exam Mental Status Exam Narrative: Patient is alert and oriented, appears more aware of surrounding and he is not really sure why he was brought into the hospital. He is anxious, appeared to be depressed, overwhelmed with information related to medical condition she has been going through now. Denies suicidal thoughts, denies thoughts of hurting other people. Reports seeing people and shadows, but not able to explain what he sees or hears. Easily frustrated, thought content is focused on wanting to go home. I do not want to be here. Disorganized thoughts, but has been improved since yesterday. Sister is at bedside to remind him what is going. Judgement and Insight: poor and impaired Medications Medications Current Medications Enoxaparin Sodium (Enoxaparin Sodium 40 Mg/0.4 Ml Syringe) 40 mg SUBCUT DAILY [facility] Last Admin: 09/26/24 07:59 Dose: 40 mg Haloperidol (Haloperidol 5 Mg Tablet) 5 mg PO TID PRN PRN Reason: severe agitation Last Admin: 09/26/24 15:17 Dose: 5 mg Haloperidol (Haloperidol 5 Mg Tablet) 5 mg PO BID BETITO Lactated Ringer's (Lr) 1,000 mls @ 200 mls/hr IVCONT .Q5H [facility] Last Admin: 09/26/24 12:59 Dose: 200 mls/hr Lorazepam (Lorazepam 1 Mg Tablet) 1 mg PO Q6H PRN PRN Reason: severe anxiety Last Admin: 09/26/24 12:58 Dose: 1 mg Melatonin (Melatonin 3 Mg Tablet) 6 mg PO BEDTIME PRN PRN Reason: Insomnia Sodium Chloride (0.9 % Sodium Chloride Flush 3 Ml Syringe) 3 ml IVFLUSH QSHIFT [facility] Last Admin: 09/26/24 08:08 Dose: Not Given Allergies Allergies Allergy/AdvReac Type Severity Reaction Status Date / Time tree nut Allergy Severe Anaphylaxis Verified 09/25/24 15:04 Peanut Butter Allergy Anaphylaxis Verified 09/25/24 15:04 soy Allergy Itching Verified 09/25/24 15:04 shellfish Allergy Severe Anaphylaxis Uncoded 09/25/24 15:04 egg white Allergy Itching Uncoded 09/25/24 15:04 Assessment & Plan Assessment & Plan (1) Bipolar disorder with psychotic features: Status: Acute Code(s): F31.9 - Bipolar disorder, unspecified Plan HPI: Patient is 19 y/o m with PMH of bipolar, psychosis, THC induced disorder-came to the hospital because of elevated CPK, elevated liver enzymes. Per the attending on medical floor, patient has been taking Mucinex and creatine seen at [facility]. He has severe rhabdomyolysis, getting IV fluid. Patient appears to be psychotic and responding to internal stimuli. Met with patient in his room 443 with the presence of his older sister who comes to visit him. Sister provides loss of information regarding the incident that brought him to the hospital. Patient reports having history of bipolar, manic episode, history of THC induced psychotic. Patient is not aware what reason brought him to the hospital. He does not remember who called ambulance for him. Sister was reviewing a couple day back for what happened. He reported that he has stopped taking medication since he was discharged from psych admission last time in 2023. He reported that he has seen outpatient psychiatrist and he told me I do not need to take medications . Therefore patient has not taking medication for about a year. He denies using any substance, no THC the past month or 2, alcohol socialize with last use was more than a week ago when he was on vacation with family where he has 5 days drinking [place] socially. Sister and patient requests this provider to talk to outpatient provider from [facility]. Parmar at [phone] who he has not seen over a year. I do not think is necessary to do collateral at this time. Sister requests if he goes to the psych hospital, the oncology social worker can make referral out to the [facility] providers. Patient admitted that he was seeing people and shadows but not able to explain what actually he sees. He feels confused not sure is real or in his dream. Denies SI/SIB/HI/AVH. He may meet criteria to go to inpatient level of care for psychiatric admission once he is medically clear. We will refer patient to care team once he is medically clear. In the meantime I will manage severe anxiety, agitation or psychosis. We will try to avoid any regimens that put liver or kidney functions at risk. Ativan 1 mg q.6 hours as needed for severe anxiety Haldol 5 mg b.i.d. for psychosis. Haldol 5 mg t.i.d. p.r.n. for agitation. Sister also diagnosed with bipolar: Currently on Latuda and Lamictal. Patient agrees to start on dose medication when he to the psych floor in order to monitor for possible side effects of those medications. Preop taking Depakote Clozaril, and clonazepam. Reported that he was so sedated on medications. And he does not like it. We will have dear attending to refer patient to care team once the patient medically clear. Total time managing care of this patient today ____ minutes. Patient educated on: diagnosis, medication risk/benefits, substance abuse and medical condition Informed Consent: understands and further education needed
[2024-09-26 16:00] VITALS: BP 116/65; PULSE 90; RESP 18; TEMP 36.8; O2SAT 98
[2024-09-26 20:00] VITALS: BP 117/71; PULSE 83; RESP 20; TEMP 36.9; O2SAT 99
[2024-09-26] MEDS: 0.9 % Sodium Chloride Flush 3 ML SYRINGE IVFLUSH (20:16)
[2024-09-27] VITALS (7 sets, daily range): BP systolic 102–121; BP diastolic 48–62; PULSE 60–81; RESP 16–18; TEMP 36.6–37.1; O2SAT 98–100
--- NOTE | 2024-09-27 | ECG_ITS ---
Test Reason : rhythm check Blood Pressure : */* mmHG Vent. Rate : 66 BPM Atrial Rate : 66 BPM P-R Int : 120 ms QRS Dur : 90 ms QT Int : 404 ms P-R-T Axes : 45 4 -24 degrees QTcB Int : 423 ms Sinus rhythm with marked sinus arrhythmia Nonspecific ST and T wave abnormality Abnormal ECG When compared with ECG of 27-Sep-2024 05:47, No significant change was found Referred By: Gabriele Lane Electronically Signed By: MELI MAYERS MD
--- NOTE | 2024-09-27 | ECG_ITS ---
Test Reason : change in rhythm Blood Pressure : */* mmHG Vent. Rate : 53 BPM Atrial Rate : 53 BPM P-R Int : 126 ms QRS Dur : 90 ms QT Int : 466 ms P-R-T Axes : 22 9 -2 degrees QTcB Int : 437 ms Sinus bradycardia Nonspecific ST abnormality Abnormal ECG When compared with ECG of 18-Mar-2023 13:35, Vent. rate has decreased by 34 bpm T wave inversion now evident in Inferior leads Referred By: Gabriele Lane Electronically Signed By: MELI MAYERS MD
--- NOTE | 2024-09-27 03:21 | CONS_ITS ---
DATE OF SERVICE: 09/26/2024 REFERRING PHYSICIAN: Dr. Lane REASON FOR CONSULTATION: Elevated liver function tests. HISTORY OF PRESENT ILLNESS: The patient is a pleasant 19-year-old man, who was admitted to the hospital after presenting to the emergency room with psychiatric issues, he was noted on evaluation to have elevated liver function tests, which he has had in the past when he was evaluated at another hospital. The elevations described in the report from [facility] suggested his liver function tests were higher there than they are here. He did undergo further evaluation with an ultrasound and was also diagnosed with rhabdomyolysis based on laboratory testing in the emergency department including a CPK on September 25 to greater than 4000 to 42,670. Liver function tests on admission showed a bilirubin of 2 with an AST of 616 and an ALT of 269. His most recent lab work from 6:42 this morning showed improvement in bilirubin to1.4 with transaminases in the 170 to 280 range. The patient denies any alcohol use or substance use. There is a report in his chart that he may be using THC. A tox screen on admission was positive for benzodiazepines, but he did receive this on ambulance run. PAST MEDICAL HISTORY: 1. Rhabdomyolysis as above. 2. History of cannabis use with psychotic disorder. 3. Bipolar disorder. 4. Seasonal allergies. CURRENT MEDICATIONS: Current medication list is reviewed in the chart. ALLERGIES: REVIEWED. FAMILY HISTORY: This is reviewed in the electronic medical record. SOCIAL HISTORY: There is no current tobacco, alcohol, or substance abuse by his report. REVIEW OF SYSTEMS: SKIN: No pruritus. HEENT: Negative. CARDIOPULMONARY: No shortness of breath or chest pain. GASTROINTESTINAL: As above. GENITOURINARY: Negative. NEUROPSYCHIATRIC: Negative. PHYSICAL EXAMINATION: GENERAL: Shows a pleasant male, who is lying comfortably in bed. VITAL SIGNS: Reviewed in electronic medical record and are stable. SKIN: Anicteric. HEENT: Shows no scleral icterus. NECK: Without lymphadenopathy or thyromegaly. LUNGS: Clear. HEART: Shows a regular rate and rhythm. S1, S2. No murmur. ABDOMEN: Soft without focal masses or tenderness. Bowel sounds are present. No organomegaly is noted. EXTREMITIES: Without edema. LABORATORY DATA: Reviewed including imaging studies. IMPRESSION: Elevated liver function tests. This appears most consistent with his recent episode of rhabdomyolysis. The bilirubin seems to be improving already and transaminases should be monitored. He does not have any evidence of underlying liver disease and does not appear to be developing pulmonary and hepatic failure. Liver tests would be expected to clear as his underlying problem is treated but if they remained persistently elevated, I would recommend metabolic and autoimmune markers. Ultrasound imaging is reassuring. MD SHAHEEN Sosa/LIZ / [id number] MTDD
[2024-09-27] MEDS: Lactated Ringers 1,000 ML 200 ML IVCONT ×4 (04:07→18:35)
[2024-09-27 07:09] LABS: Anion Gap 8 (12-20); Blood Urea Nitrogen 11 mg/dL (9-16); Calcium 8.5 mg/dL (8.4-10.2); Carbon Dioxide 28 mmol/L (22-29); Chloride 110 mmol/L (96-108); Creatinine Clr Calc Pharmacy 94.6; Estimated Glomerular Filt Rate > 60; Potassium 4.0 mmol/L (3.3-5.1); Sodium 142 mmol/L (135-145)
[2024-09-27 07:54] LABS: Alanine Aminotransferase 133 U/L (0-40); Albumin Level 3.4 g/dL (3.5-5.0); Alkaline Phosphatase 36 U/L (39-117); Aspartate Amino Transferase 146 U/L (5-37); Total Protein 5.2 g/dL (6.5-8.0)
--- NOTE | 2024-09-27 11:03 | P.PNIM_ITS ---
Subjective Subjective Date of Service: 09/27/24 Interval History: rhabdo Review of Systems left elbow mild swelling ( he says has it before coming to hospital). no new symptoms except above. L Physical Exam 2 Exam: Exam: Appearance: seems similar. Eyes: Pupils equal, round and reactive to light. cvs: rrr, [id number]. res: Air entry fair, no rales or wheezing abd: no rebound or guarding ,nt, bs present. ext pulses present , no cyanosis , mild swelling left elbow. neuro: nonfocal, moves all extremities. Vital Signs: Vital Signs: Last Vital Signs Temp 98.3 F 09/27/24 07:48 Pulse 81 09/27/24 07:48 Resp 18 09/27/24 07:48 BP 117/55 L 09/27/24 07:48 Pulse Ox 100 09/27/24 07:48 O2 Del Method Room Air 09/27/24 07:48 BMI result Body Mass Index 19.6 Objective Data Active Medications Enoxaparin Sodium (Enoxaparin Sodium 40 Mg/0.4 Ml Syringe) 40 mg SUBCUT DAILY [facility] Last Admin: 09/27/24 09:26 Dose: Not Given Documented By: MARCUS Non-Admin Reason: Patient Refused Haloperidol (Haloperidol 5 Mg Tablet) 5 mg PO TID PRN PRN Reason: severe agitation Last Admin: 09/26/24 15:17 Dose: 5 mg Documented By: MARCUS Haloperidol (Haloperidol 5 Mg Tablet) 5 mg PO BID [facility] Last Admin: 09/27/24 09:25 Dose: 5 mg Documented By: MARCUS Lactated Ringer's (Lr) 1,000 mls @ 200 mls/hr IVCONT .Q5H [facility] Last Admin: 09/27/24 09:05 Dose: 200 mls/hr Documented By: MARCUS Lorazepam (Lorazepam 1 Mg Tablet) 1 mg PO Q6H PRN PRN Reason: severe anxiety Last Admin: 09/26/24 12:58 Dose: 1 mg Documented By: MARCUS Melatonin (Melatonin 3 Mg Tablet) 6 mg PO BEDTIME PRN PRN Reason: Insomnia Sodium Chloride (0.9 % Sodium Chloride Flush 3 Ml Syringe) 3 ml IVFLUSH QSHIFT [facility] Last Admin: 09/27/24 09:05 Dose: Not Given Documented By: MARCUS Non-Admin Reason: IV Running Labs 09/26/24 06:42 09/27/24 06:16 Labs: Laboratory Results - last 24 hr 09/26/24 09/27/24 06:42 06:16 Hold Purple Top SEE NOTE Anion Gap 8 L Estim Creat Clear Calc 94.6 Estimated GFR > 60 Random Glucose 87 Calcium 8.5 Total Bilirubin 1.2 H Direct Bilirubin 0.4 AST 146 H ALT 133 H Alkaline Phosphatase 36 L Total Creatine Kinase 77697 H 49561 H Total Protein 5.2 L Albumin 3.4 L Assessment and Plan (1) Bipolar disorder with psychotic features: Status: Acute (2) Rhabdomyolysis: Status: Acute (3) Elevated liver enzymes: Status: Acute Assessment and Plan: 19 y/o m with PMH of bipolar, psychosis, THC induced disorder-came to the hospital because of elevated CPK, elevated liver enzymes. Severe rhabdomyolysis: improving [place] [id number] range Received IV 2 L fluid in the ED initially, also started on now normal saline 200 mL/hour Renal function so far fine. Nephro evaluation -recommended continue IV fluid normal saline 200 mL/hour, monitor CPK. elevated Lft's : unclear etiology/may be related to rhabdomylysis as per ed(note) -improving from [employer] labs-Tylenol, alcohol, salsalate level fine,seen at [facility] and had all of his vaccines - he had hep B in past and hep BsAB positive. LFTs improving, ammonia level also improving abd us :There may be a mild degree of hepatomegaly. GI evaluation pending hx of bipolar : was on multiple meds , stopped taking them Please see psych note from last year Psych evaluation added- added Haldol and Ativan p.r.n. DVT prophylaxis: SubQ Lovenox Ongoing need: Severe rhabdomyolysis need IV fluid, close monitoring of liver function tests, electrolytes, need Nephro, GI, psych input for above. Quality Stroke Does the patient have a stroke diagnosis?: No VTE Prior VTE?: No VTE Risk Level:: Medical - moderate - high VTE Device Contraindication: N/A - Device Ordered VTE Drug Contraindication: N/A - Med Ordered
--- NOTE | 2024-09-27 13:52 | MHC.CM.PN ---
Pt self-care, he lives at home with his mother. No HCP on file, pt unable to complete one at this time. Pt will likely need inpatient psych level of care once medically cleared. PCP: Dr. Cole Aly
[2024-09-28 03:36] VITALS: BP 98/60; PULSE 69; RESP 16; TEMP 36.7; O2SAT 100
[2024-09-28 07:35] VITALS: BP 137/72; PULSE 75; RESP 18; TEMP 36.4; O2SAT 100
[2024-09-28 07:41] LABS: Thyroid Stimulating Hormone 0.76 uIU/mL (0.32-4.0)
[2024-09-28 07:48] LABS: Alanine Aminotransferase 127 U/L (0-40); Albumin Level 3.9 g/dL (3.5-5.0); Alkaline Phosphatase 37 U/L (39-117); Aspartate Amino Transferase 106 U/L (5-37); Blood Urea Nitrogen 10 mg/dL (9-16); Calcium 8.9 mg/dL (8.4-10.2); Creatinine Clr Calc Pharmacy 110.9; Estimated Glomerular Filt Rate > 60; Total Protein 5.8 g/dL (6.5-8.0)
[2024-09-28 07:59] LABS: Anion Gap 11 (12-20); Carbon Dioxide 27 mmol/L (22-29); Chloride 106 mmol/L (96-108); Potassium 3.1 mmol/L (3.3-5.1); Sodium 141 mmol/L (135-145)
[2024-09-28 11:47] VITALS: BP 109/49; PULSE 82; RESP 18; TEMP 36.2; O2SAT 100
[2024-09-28] MEDS: Potassium Chloride Packet 20 MEQ PACKET 40 MEQ PO (12:05)
[2024-09-28 14:58] VITALS: BP 112/47; PULSE 71; RESP 18; TEMP 37.1; O2SAT 100
[2024-09-28] MEDS: 0.9 % Sodium Chloride Flush 3 ML SYRINGE IVFLUSH (15:29)
[2024-09-28 17:52] LABS: Follicle Stimulating Hormone 1.8 mIU/mL (1.4-12.8)
--- NOTE | 2024-09-28 18:25 | HO.PM.IMPN ---
Subjective Subjective Date of Service: 09/28/24 Interval History: No acute events overnight Reports feels way better than at time of admission Denies muscle pain No difficulty urinating Denies SI/HI No CP or pressure; denies palpitations Review of Systems Review of Systems: Yes all other systems are reviewed and are negative Physical Exam Exam: Exam: General: AOx3, no acute distress Resp: CTA bilaterally CVS: S1, S2, RRR GI: +BS, NT, no distention Skin: Warm, dry Neuro: Cranial nerves II-XII grossly intact bilaterally. Motor grossly intact bilaterally Extremities: No edema Psych: Appropriate affect. Calm, cooperative Vital Signs: Vital Signs: Last Vital Signs Temp 98.8 F 09/28/24 14:58 Pulse 71 09/28/24 14:58 Resp 18 09/28/24 14:58 BP 112/47 L 09/28/24 14:58 Pulse Ox 100 09/28/24 14:58 O2 Del Method Room Air 09/28/24 14:58 BMI result Body Mass Index 19.6 Objective Data Active Medications Enoxaparin Sodium (Enoxaparin Sodium 40 Mg/0.4 Ml Syringe) 40 mg SUBCUT DAILY [facility] Last Admin: 09/28/24 07:35 Dose: Not Given Documented By: DAVINA Non-Admin Reason: Patient Refused Haloperidol (Haloperidol 5 Mg Tablet) 5 mg PO TID PRN PRN Reason: severe agitation Last Admin: 09/26/24 15:17 Dose: 5 mg Documented By: MARCUS Haloperidol (Haloperidol 5 Mg Tablet) 5 mg PO BID [facility] Last Admin: 09/28/24 07:34 Dose: 5 mg Documented By: DAVINA Lactated Ringer's (Lr) 1,000 mls @ 125 mls/hr IVCONT .Q8H [facility] Lorazepam (Lorazepam 1 Mg Tablet) 1 mg PO Q6H PRN PRN Reason: severe anxiety Last Admin: 09/28/24 18:24 Dose: 1 mg Documented By: FRANKO Melatonin (Melatonin 3 Mg Tablet) 6 mg PO BEDTIME PRN PRN Reason: Insomnia Last Admin: 09/27/24 23:17 Dose: 6 mg Documented By: DELILAH Sodium Chloride (0.9 % Sodium Chloride Flush 3 Ml Syringe) 3 ml IVFLUSH QSHIFT [facility] Last Admin: 09/28/24 15:29 Dose: 3 ml Documented By: FRANKO Labs 09/26/24 06:42 09/28/24 06:05 Labs: Laboratory Results - last 24 hr 09/26/24 09/28/24 06:41 06:05 Hold Purple Top SEE NOTE Anion Gap 11 L Estim Creat Clear Calc 110.9 Estimated GFR > 60 Random Glucose 99 Calcium 8.9 Total Bilirubin 1.0 AST 106 H ALT 127 H Alkaline Phosphatase 37 L Total Creatine Kinase 7565 H Total Protein 5.8 L Albumin 3.9 TSH 0.76 FSH 1.8 Luteinizing Hormone 3.3 Assessment and Plan (1) Rhabdomyolysis: Status: Acute Assessment and Plan: 19 y/o m with PMH of bipolar, psychosis, THC induced disorder-came to the hospital because of elevated CPK, elevated liver enzymes. Severe rhabdomyolysis: improving cpk treding down but still in 7000 range Received IV 2 L fluid in the ED initially, also started on maintenance fluids, now LR at 150 mL/hour Renal function so far fine. Nephro evaluation -recommended continue IV fluid normal saline 200 mL/hour, monitor CPK. elevated Lft's : unclear etiology/may be related to rhabdomylysis as per ed(note) -improving from [employer] labs-Tylenol, alcohol, salsalate level fine,seen at [facility] and had all of his vaccines - he had hep B in past and hep BsAB positive. LFTs improving, ammonia level now WNL abd us :There may be a mild degree of hepatomegaly. GI evaluation says likely related to rhabdo, treat as above hx of bipolar : was on multiple meds , stopped taking them Please see psych note from last year Psych evaluation added- added Haldol and Ativan p.r.n. Will need care team evaluation once medically cleared DVT prophylaxis: SubQ Lovenox Ongoing need: Severe rhabdomyolysis need IV fluid, close monitoring of liver function tests, electrolytes, need Nephro, GI, psych input for above. Quality Stroke Does the patient have a stroke diagnosis?: No VTE Prior VTE?: No VTE Risk Level:: Medical - moderate - high VTE Device Contraindication: N/A - Device Ordered VTE Drug Contraindication: N/A - Med Ordered
[2024-09-28] MEDS: Lactated Ringers 1,000 ML 150 ML IVCONT (19:24)
[2024-09-28 19:46] VITALS: BP 116/55; PULSE 61; RESP 16; TEMP 36.9; O2SAT 100
[2024-09-28 23:30] VITALS: BP 126/61; PULSE 84; RESP 16; TEMP 37.1; O2SAT 98
[2024-09-29] MEDS: Lactated Ringers 1,000 ML 150 ML IVCONT ×3 (01:00→14:16)
[2024-09-29 03:35] VITALS: BP 96/46; PULSE 61; RESP 16; TEMP 37.1; O2SAT 98
[2024-09-29 07:09] LABS: Alanine Aminotransferase 113 U/L (0-40); Albumin Level 4.0 g/dL (3.5-5.0); Alkaline Phosphatase 40 U/L (39-117); Anion Gap 13 (12-20); Aspartate Amino Transferase 70 U/L (5-37); Blood Urea Nitrogen 7 mg/dL (9-16); Calcium 9.0 mg/dL (8.4-10.2); Carbon Dioxide 24 mmol/L (22-29); Chloride 109 mmol/L (96-108); Creatinine Clr Calc Pharmacy 98.2; Estimated Glomerular Filt Rate > 60; Potassium 3.9 mmol/L (3.3-5.1); Sodium 142 mmol/L (135-145); Total Protein 6.2 g/dL (6.5-8.0)
[2024-09-29 07:46] VITALS: BP 125/66; PULSE 62; RESP 16; TEMP 37; O2SAT 100
--- NOTE | 2024-09-29 10:52 | P.PNIM_ITS ---
Subjective Subjective Date of Service: 09/29/24 Interval History: No acute events overnight Pt reports feels ?great? Has no medical complaints No muscle pain Denies nausea, vomiting, abdominal pain Has been eating and drinking without difficulties Denies SI/HI Eager for discharge from the hospital Review of Systems Review of Systems: Yes all other systems are reviewed and are negative Physical Exam 2 Exam: Exam: General: AOx3, no acute distress Resp: CTA bilaterally CVS: S1, S2, RRR GI: +BS, NT, no distention Skin: Warm, dry Neuro: Cranial nerves II-XII grossly intact bilaterally. Motor grossly intact bilaterally Extremities: No edema Psych: Calm, cooperative Vital Signs: Vital Signs: Last Vital Signs Temp 98.6 F 09/29/24 07:46 Pulse 62 09/29/24 07:46 Resp 16 09/29/24 07:46 BP 125/66 09/29/24 07:46 Pulse Ox 100 09/29/24 07:46 O2 Del Method Room Air 09/29/24 07:46 BMI result Body Mass Index 19.6 Objective Data Active Medications Enoxaparin Sodium (Enoxaparin Sodium 40 Mg/0.4 Ml Syringe) 40 mg SUBCUT DAILY [facility] Last Admin: 09/29/24 08:19 Dose: Not Given Documented By: HUGO Non-Admin Reason: Patient Refused Haloperidol (Haloperidol 5 Mg Tablet) 5 mg PO TID PRN PRN Reason: severe agitation Last Admin: 09/26/24 15:17 Dose: 5 mg Documented By: MARCUS Haloperidol (Haloperidol 5 Mg Tablet) 5 mg PO BID [facility] Last Admin: 09/29/24 08:22 Dose: 5 mg Documented By: HUGO Lactated Ringer's (Lr) 1,000 mls @ 150 mls/hr IVCONT .Q6H40M [facility] Last Admin: 09/29/24 08:22 Dose: 150 mls/hr Documented By: HUGO Lorazepam (Lorazepam 1 Mg Tablet) 1 mg PO Q6H PRN PRN Reason: severe anxiety Last Admin: 09/29/24 09:31 Dose: 1 mg Documented By: HUGO Melatonin (Melatonin 3 Mg Tablet) 6 mg PO BEDTIME PRN PRN Reason: Insomnia Last Admin: 09/28/24 22:28 Dose: 6 mg Documented By: FRANKO Sodium Chloride (0.9 % Sodium Chloride Flush 3 Ml Syringe) 3 ml IVFLUSH QSHIFT [facility] Last Admin: 09/29/24 07:12 Dose: Not Given Documented By: HUGO Non-Admin Reason: Previously Administered Labs 09/26/24 06:42 09/29/24 06:37 Labs: Laboratory Results - last 24 hr 09/26/24 09/29/24 06:41 06:37 Anion Gap 13 Estim Creat Clear Calc 98.2 Estimated GFR > 60 Random Glucose 85 Calcium 9.0 Total Bilirubin 1.2 H AST 70 H ALT 113 H Alkaline Phosphatase 40 Total Creatine Kinase 4255 H Total Protein 6.2 L Albumin 4.0 FSH 1.8 Luteinizing Hormone 3.3 Assessment and Plan (1) Rhabdomyolysis: Status: Acute (2) Elevated liver enzymes: Status: Acute Plan 19 y/o m with PMH of bipolar, psychosis, THC induced disorder-came to the hospital because of elevated CPK, elevated liver enzymes. Severe rhabdomyolysis: Improving. CPK initially >42,670 now 4255; has been decreasing by half while on fluids Received IV 2 L fluid in the ED initially, also started on maintenance fluids, now LR at 150 mL/hour Renal function remains baseline Has been eating and drinking without issue Nephro following Elevated Lft's Likely secondary to rhabdomylysis As per ed(note) -improving from [facility] labs-Tylenol, alcohol, salsalate level fine,seen at [facility] and had all of his vaccines - he had hep B in past and hep BsAB positive. LFTs improving, ammonia level now WNL Abd us :There may be a mild degree of hepatomegaly. GI evaluation says likely related to rhabdo, treat as above Hx of bipolar : was on multiple meds , stopped taking them Please see psych note from last year Initially brought in on a section 12 for hallucinations and medication noncompliance Psych evaluation added- added Haldol and Ativan p.r.n. Pt now medically cleared and will need care team evaluation for discharge DVT prophylaxis: SubQ Lovenox Ongoing need: Pt is medically cleared for discharge and now awaiting care team evaluation for safe disposition. Quality Stroke Does the patient have a stroke diagnosis?: No VTE Prior VTE?: No VTE Risk Level:: Medical - moderate - high VTE Device Contraindication: N/A - Device Ordered VTE Drug Contraindication: N/A - Med Ordered
[2024-09-29 11:46] VITALS: BP 119/56; PULSE 76; RESP 16; TEMP 36.5; O2SAT 98
[2024-09-29 15:46] VITALS: BP 127/63; PULSE 84; RESP 16; TEMP 36.6; O2SAT 94
--- NOTE | 2024-09-29 16:05 | PC.NURSE ---
report given to [facility] RN. informed pt ready for transfer. IV removed, tele d/c'ed and fluids stopped.
--- NOTE | 2024-09-29 16:09 | MHC.CM.PN ---
Patient has been medically cleared for dc today to [facility]
--- NOTE | 2024-09-29 16:22 | PM.DS ---
DS: Providers Provider Date of Service: 09/29/24 Date of admission: 09/25/24 16:37 Date of discharge: 09/29/24 Primary care physician: Cole Aly MD Consults: 09/25/24 15:27 ED CARE Team Crisis Consult Stat Comment: Reason for consultation: psychosis 09/25/24 16:39 Consult to Nephrology Routine Consulting Provider: [facility] Reason for consultation: severe rhabdomylysis Has provider been notified: No 09/25/24 16:44 Consult to Psychiatry Routine Consulting Provider: [facility] Reason for consultation: severe rhabdo/ multiple psych issues Has provider been notified: No 09/25/24 19:11 Consult to Gastroenterology Routine Consulting Provider: [facility] Reason for consultation: elevated lft's Has provider been notified: No 09/27/24 05:11 Consult to Cardiology Routine Consulting Provider: [facility] Reason for consultation: bradycardia; ?junctional on Tele 09/29/24 10:51 Inpt CARE Team Crisis Consult Routine Comment: Reason for consultation: Brought in on a section 12; adm for rhabdo, now medically cleared DS: Diagnosis Discharge Diagnosis (1) Rhabdomyolysis: Status: Acute (2) Elevated liver enzymes: Status: Acute DS: Summary Hospital Course Hospital Course: From admission HPI: Date of Service: 09/25/24 Attending physician on admission: Gabriele Lane Chief Complaint: severe rhabdomylysis hx taken from mother /ed notes :patient is poor historian hpi:19 y/o m with PMH of bipolar, psychosis, THC induced disorder here with c/o not taking his medications for 5 months but per mom did okay he recently traveled to [place] and did okay even drove home from [facility]. As per the mother he having some insomnia and feel restless from last couple weeks, He was seen at [facility] in the last few days given ativan PO for anxiety but refused, his LFTs were elevated at that time. Mom denies any ingestions or hx of this but she thinks that patient might be usingTHC again. Denies any SI. As per the patient mother he is also going to plan at [facility] a lot for muscle building.per mom he has been taking Creatine and mucinex as outpatient. He is seen at [facility] and had all of his vaccines - he had hep B in past and hep BsAB positive. He states he is fine. EMS notes he has been hallucinating and not sleeping for 4 days, he notes his mom is eating his heart. He seems to be responding to internal stimuli. And patient was asked any new symptoms-patient denies any new symptoms accept as some muscle pains. 5mg IV versed by EMS en route for behaviors. In the ED found to have CPK of 42,000 AST [id number], bilirubin of 2, direct bilirubin 0.6( as per ED physician: At [place]:Darling had AST in 900s bili 1.9 ). us:There may be a mild degree of hepatomegaly. Tylenol and salicylate level, alcohol level fine Urine drug screen-ordered. Hospital course: Pt was admitted to the hospital for rhabdomyolysis and transaminitis likely in the setting creating use, excessive exercise, and limited p.o. intake in the setting of acute psychiatric episode. Pt was treated with aggressive IV crystalloid replenishment with good effect. Patient's LFTs and CPK continued to improve with each day; CPK improved from >65979 --> 4255. Patient's hospital stay was overall uncomplicated from a medical standpoint, and pt did not have any significant acute medical complaints. Was seen and evaluated by GI who thought elevated LFTs secondary to rhabdomyolysis rather than liver injury. Was seen and evaluated by psychiatry who started pt on Haldol and Ativan p.r.n.. Pt was medically cleared for discharge and evaluated by crisis team who felt pt met inpatient psychiatric hospital level of care. Pt is agreeable to transfer to inpatient psychiatric stabilization. For rhabdomyolysis, pt is encouraged to drink plenty of fluids and maintain hydration, especially when exercising or working out. Avoid creating supplementation. For mood disorder with acute psychosis pt will be transferred to inpatient psychiatric care for stabilization. Time Attestation Discharge Coordination Time (in mins): 40 Quality: Safe Use of Opioids Does Pt have an Active Cancer Diagnosis on the Problem List?: No Quality: Stroke Does the patient have a stroke diagnosis?: No Physical Exam Exam: Exam: General: AOx3, no acute distress Resp: CTA bilaterally CVS: S1, S2, RRR GI: +BS, NT, no distention Skin: Warm, dry Neuro: Cranial nerves II-XII grossly intact bilaterally. Motor grossly intact bilaterally Extremities: No edema Psych: Calm, cooperative Vital Signs: Vital Signs: Last Vital Signs Temp 97.9 F 09/29/24 15:46 Pulse 84 09/29/24 15:46 Resp 16 09/29/24 15:46 BP 127/63 09/29/24 15:46 Pulse Ox 94 09/29/24 15:46 O2 Del Method Room Air 09/29/24 15:46 BMI result Body Mass Index 19.6 DS: Data Data Completed and Pending Labs on day of discharge: Laboratory Results - last 24 hr 09/26/24 09/29/24 06:41 06:37 Sodium 142 Potassium 3.9 D Chloride 109 H Carbon Dioxide 24 Anion Gap 13 BUN 7 L Creatinine 1.05 Estim Creat Clear Calc 98.2 Estimated GFR > 60 Random Glucose 85 Calcium 9.0 Total Bilirubin 1.2 H AST 70 H ALT 113 H Alkaline Phosphatase 40 Total Creatine Kinase 4255 H Total Protein 6.2 L Albumin 4.0 FSH 1.8 Luteinizing Hormone 3.3 Discharge Plan Discharge Patient Disposition: Xfer Psychiatric Hosp Referrals: [facility] [Other] - 1 Week Cole Aly MD [Primary Care Provider, Pediatrics] - 1 Week Discharge Medications: New haloperidol 5 mg Tablet 5 mg PO TID PRN (Reason: Agitation/anxiety) Qty: 1 0RF haloperidol 5 mg Tablet 5 mg PO BID Qty: 1 0RF lorazepam 1 mg Tablet 1 mg PO Q6H PRN (Reason: severe anxiety) Qty: 1 0RF Continued epinephrine 0.3 mg/0.3 mL auto-injector 0.3 ml IM DAILY PRN (Reason: anaphylaxis) No Action melatonin 3 mg PO BEDTIME Discharge Orders: Discharge Order (Routine); Ordered 09/29/24 Ordered By: Wilder Sánchez Activity on Discharge: As tolerated Stand Alone Forms: Patient Portal Discharge page Print Language: Unable To Collect Care Plan Goals: See below Health Concerns: Rhabdomyolysis Plan of Treatment: You were initially brought to the hospital for concerns of hallucinations and disorganized behavior. Workup in the ED showed rhabdomyolysis and elevated liver enzymes and you were admitted to the hospital floor for medical management. You were treated with aggressive IV fluids with rapid improvement of rhabdomyolysis and liver enzymes. Renal function remained normal throughout. You are encouraged to drink plenty of fluids and remain hydrated, especially when working out. Avoid creatine supplements. You were also seen and evaluated by the crisis team who recommended inpatient psychiatric level of care. You will be transferred to [facility] for stabalization. Assessment: See discharge summary Discharge Date/Time: 09/29/24 16:49
[2024-10-10 03:14] LABS: Estradiol Free 0.58 pg/mL; Estradiol, Ultrasensitive 23 pg/mL (< OR = 29)
== END 2024-09-29 16:49 | DRG 351 ==
LOC: HO.ED 16:20 → HO.EDOVER 16:42 → HO.IMC 19:25
PROVIDERS: Internal Medicine; Nurse Practitioner Family; Admitting Provider Internal Medicine; Emergency Provider Emergency Medicine; PCP Pediatrics; Visit Provider Student in an Organized Health Care Education/Training Program
DX: M62.82 Rhabdomyolysis (principal); R16.0 Hepatomegaly, not elsewhere classified; F31.9 Bipolar disorder, unspecified; Z91.148 Patient's other noncompliance with medication regimen for other reason; Z79.899 Other long term (current) drug therapy
CPT/HCPCS: 36415; 73080; 76705; 80048; 80053; 80061; 80076; 80143; 80179; 80307; 81003; 82140; 82550; 82670; 82681; 83001; 83002; 83735; 84403; 84443; 85025; 85610; 93005; 99285; J1650; J7120; S9485

== ENCOUNTER → 2024-09-25 15:53 | Outpatient (BNV) | payer BC, MEDICAID, SELFPAY | PROVIDERS: Admitting Provider Internal Medicine; Emergency Provider Emergency Medicine; PCP Pediatrics; Visit Provider Radiology Diagnostic Radiology | DX: R94.5 Abnormal results of liver function studies (principal) | CPT/HCPCS: 76705 ==

== ENCOUNTER 2024-09-25 16:37 | Outpatient (BNV) | payer BC, MEDICAID, SELFPAY | END 2024-09-27 05:47 | PROVIDERS: Admitting Provider Internal Medicine; Emergency Provider Emergency Medicine; PCP Pediatrics; Visit Provider Internal Medicine Cardiovascular Disease | DX: R00.1 Bradycardia, unspecified (principal); I49.9 Cardiac arrhythmia, unspecified | CPT/HCPCS: 93010 ==

== ENCOUNTER 2024-09-25 16:37 | Outpatient (BNV) | payer BC, MEDICAID, SELFPAY | END 2024-09-27 09:40 | PROVIDERS: Admitting Provider Internal Medicine; Emergency Provider Emergency Medicine; PCP Pediatrics; Visit Provider Radiology Diagnostic Radiology | DX: M79.89 Other specified soft tissue disorders (principal) | CPT/HCPCS: 73080 ==

== ENCOUNTER → 2024-09-25 16:37 | Outpatient (BNV) | payer BC, MEDICAID, SELFPAY | PROVIDERS: Admitting Provider Internal Medicine; Emergency Provider Emergency Medicine; PCP Pediatrics; Visit Provider Nurse Practitioner Psychiatric/Mental Health | DX: F31.9 Bipolar disorder, unspecified (principal) | CPT/HCPCS: 99254 ==

== ENCOUNTER → 2024-09-25 16:37 | Outpatient (BNV) | payer BC, MEDICAID, SELFPAY | PROVIDERS: Admitting Provider Internal Medicine; Emergency Provider Emergency Medicine; PCP Pediatrics; Visit Provider Internal Medicine | DX: F31.9 Bipolar disorder, unspecified (principal); M62.82 Rhabdomyolysis; R74.8 Abnormal levels of other serum enzymes | CPT/HCPCS: 99223; 99231; 99232 ==

== ENCOUNTER → 2024-09-25 16:37 | Outpatient (BNV) | payer BC, MEDICAID, SELFPAY | PROVIDERS: Admitting Provider Internal Medicine; Emergency Provider Emergency Medicine; PCP Pediatrics; Visit Provider Nurse Practitioner Family | DX: M62.82 Rhabdomyolysis (principal) | CPT/HCPCS: 99253 ==

== ENCOUNTER 2024-09-29 16:55 | Inpatient (IN) | payer BC, MEDICAID, SELFPAY ==
[2024-09-29 17:30] VITALS: BP 129/68; PULSE 78; RESP 16; TEMP 36.3; O2SAT 97
--- NOTE | 2024-09-29 18:41 | PC.ADMIT ---
Nitin is a 19 y/o slovenian speaking male admitted from the medical floor at 1658 on a CV with a dx of unspecified psychosis. Pt was living at home and went off of his medications approximately 5 months ago. Pt became paranoid and delusional believing ?his mother wanted to eat his heart.? Pt was also hallucinating and returning to internal stimuli. Pt was admitted to medical at the time for severe rhabdomyolysis and was in need of IV fluids. Pt was admitted to [facility] on 03/2023 r/t THC induced psychosis. Pt has been medically cleared and admitted to [facility]. Pt is A&O X3, polite and cooperative. Pts mood is depressed with a blunted affect. Pt denies AVH? currently, thoughts are linear and pt remains focused. Pt admits to paranoia with mother prior to admission, but denies any now. Pt denies SI/HI with no plans or intent to harm self or others. Pt reports having insomnia and is hopeful that will improve with tx on the unit. Pt reports a good appetite with no wt loss or gain. Pt has a hx of using ETOH in the past, but reports its only on special occasions, denies withdrawal. 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 Pt denies any acute medical conditions and has no visible injuries. Pts goal is ?to get my psychosis and my sleep fixed.? Pt placed on 15 minute safety checks.?
[2024-09-30 07:45] VITALS: BP 104/58; PULSE 92; RESP 16; TEMP 36.4; O2SAT 99
[2024-09-30 08:44] LABS: Hemoglobin A1C 87.4583 umol/L; Total Hemoglobin (HGBA1C) 3234.9008 umol/L
[2024-09-30 09:00] LABS: Alanine Aminotransferase 107 U/L (0-40); Albumin Level 4.4 g/dL (3.5-5.0); Alkaline Phosphatase 46 U/L (39-117); Anion Gap 11 (12-20); Aspartate Amino Transferase 56 U/L (5-37); Blood Urea Nitrogen 9 mg/dL (9-16); Calcium 8.9 mg/dL (8.4-10.2); Carbon Dioxide 30 mmol/L (22-29); Chloride 104 mmol/L (96-108); Cholesterol 116 mg/dL (<200); Estimated Glomerular Filt Rate > 60; HDL Cholesterol 50 mg/dL (>40); Potassium 3.8 mmol/L (3.3-5.1); Sodium 141 mmol/L (135-145); Total Protein 6.7 g/dL (6.5-8.0); Triglycerides 46 mg/dL (<150)
--- NOTE | 2024-09-30 09:09 | HO.PSYADMNOT ---
HPI Date of Service: 09/30/24 Chief Complaint: psychosis Sources of Information: patient interviewed, chart reviewed and crisis/core team assessment reviewed HPI Subjective Notes: Herman Warning and Conditional Voluntary Narrative: Per care team note: Patient is a 19 years old single black Tuvaluan speaking male seen in the [facility] after be initially presented via ambulance on a section 12 from home on 09/25. He has been off medication for 5-6 months, exhibit paranoid delusional states that his mother wanted to eat my heart . Reported that he experience hallucinations, and appeared to responding to internal stimuli. He was medically admitted due to severe rhabdomyolysis side and liver function. This provider met with patient on 09/29 at around 1715 and again on 09/30/24. He states that I was in psychosis. I can not tell realities verses dreams. I did not slept for 5 days . Now I feel drowsy, take giving medication before bringing me here . Reported that he has not taking medication after discharge from last year my doctor told me I do not have to take medication . Denies trauma history, having no outpatient psychiatrist or therapist. Denies SI/SIB/HI/AVH. Reports history of SI. Denies suicide attempts. Reports increase in depression and anxiety rated 8/10 and 9/10. Poor sleep and poor appetite. He is under weight. He is who direct, we plan to get medication for psychiatric mental health. Past Psychiatric History: He has psychiatric admission one at [facility]- M[facility] last year. Currently has no outpatient providers. Stopped taking medication after discharge from . Medical Evaluation Reviewed: Yes ALT and AST trending down. [facility] Medical History Cannabis use with psychotic disorder Bipolar disorder with psychotic features Seasonal allergies Family History: Father-alcoholism, personality disordered. He has no contact with dad for the past 2 years. Paternal [id number] when pt was age 12. Reports that his mom and dad never got . Sister also diagnosed with bipolar. Currently taking medication: Lamictal and Latuda which helpful. Patient requested if he can take the medication like his sister Denies substance use in the family Social History: He is single having no children, never before. 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 He is currently not work. 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 Substance History: Denies current substance use. History of using marijuana, last use 4 months ago. Occasionally has some alcohol. No alcohol issue. He does not smoke cigarettes. Trauma History: Denies Diagnostics Vital Signs (24Hr): Vital Signs - 24 hr 09/29/24 17:30 09/30/24 07:45 Temperature 97.3 F 97.6 F Pulse Rate 78 92 Respiratory Rate 16 16 Blood Pressure 129/68 104/58 L Pulse Oximetry 97 99 Oxygen Delivery Method Room Air Room Air Labs 10/02/24 07:01 Labs: Laboratory Results - last 48 hr 09/30/24 08:15 Sodium 141 Potassium 3.8 Chloride 104 Carbon Dioxide 30 H Anion Gap 11 L BUN 9 Creatinine 1.10 Estim Creat Clear Calc TNP Estimated GFR > 60 Random Glucose 98 Estimat Average Glucose 85 Hemoglobin A1c % 4.6 Calcium 8.9 Total Bilirubin 1.1 H AST 56 H ALT 107 H Alkaline Phosphatase 46 Total Protein 6.7 Albumin 4.4 Triglycerides 46 Cholesterol 116 LDL Cholesterol, Calc 57 HDL Cholesterol 50 Meds/Allergies Meds Home Medications ?Medication ?Instructions ?Recorded ?Confirmed ?Type epinephrine 0.3 mg/0.3 mL 0.3 ml IM DAILY PRN anaphylaxis 09/25/24 09/29/24 History injection, auto-injector melatonin 3 mg PO BEDTIME 09/29/24 09/29/24 History Allergies Allergies Allergy/AdvReac Type Severity Reaction Status Date / Time tree nut Allergy Severe Anaphylaxis Verified 09/25/24 15:04 Peanut Butter Allergy Anaphylaxis Verified 09/25/24 15:04 soy Allergy Itching Verified 09/25/24 15:04 shellfish Allergy Severe Anaphylaxis Uncoded 09/25/24 15:04 egg white Allergy Itching Uncoded 09/25/24 15:04 Mental Status Exam Mental Status Exam Narrative: Patient is alert and oriented, appears more aware of surrounding, He is anxious, appeared to be depressed, overwhelmed with information related to medical condition,. Denies suicidal thoughts, denies thoughts of hurting other people. Disorganized with thought blocked,. Racing thoughts and anxious.. Denies SI/SIB/HI/AVH. Jdgement and insight are poor/impaired. Judgement and Insight: poor and impaired Assessment & Plan Assessment & Plan (1) Bipolar disorder with psychotic features: Status: Acute Code(s): F31.9 - Bipolar disorder, unspecified Plan HPI: Patient is a 19 years old single black Tuvaluan speaking male with hx of Bipolar with psychotic behaviors, asthma who was seen in the [facility] after be initially presented via ambulance on a section 12 from home on 09/25. He has been off medication for 5-6 months, exhibit paranoid delusional states that his mother wanted to eat my heart . Reported that he experience hallucinations, and appeared to responding to internal stimuli. He was medically admitted due to severe rhabdomyolysis side and liver function. This provider met with patient on 09/29 at around 1715 and again on 09/30/24. He states that I was in psychosis. I can not tell realities verses dreams. I did not slept for 5 days . Now I feel drowsy, take giving medication before bringing me here . Reported that he has not taking medication after discharge from [facility] last year my doctor told me I do not have to take medication Formulation/clinical reasoning: None medication compliant the discharge from 1st break last year from [facility]. He become more paranoid, psychotic, and appeared to be depressed, increased anxiety and depression, decreased sleep and appetite. History of bipolar with psychotic behavior. Currently has no outpatient psychiatry or therapist. He will be benefit in restrictive environment for the start of medication, medication management, and for follow-up patient should be set up with Psychiatry to continue with the treatment. Hospital course: 09/30/24: Newly admitted, appeared to be paranoid, disorganized, with thought blocked. Anxious, flat affect, no hallucinations. Continue with Haldol 5 mg b.i.d. for psychosis which was started by this provider when he was on medical floor. Reduced Ativan from 1 mg 0.5 every 6 hours as needed due to drowsy. We will start on Latuda 20 mg at 17:00, even with food, with psychosis Reduce Haldol 5 mg to 2.5 mg. P.r.n. due to drowsy. Ordered ensure t.i.d. with meals for under weight Plan Total creatine [id number]. Continue to monitor for trending labs results. Elevated on liver function Patient on 15 minute checks for safety. Admitted to M3. CV. Work with treatment team to do collateral and refer to outpatient psychiatry. He has no one current time. Patient educated on: diagnosis, medication risk/benefits and therapeutic strategies Informed Consent: understands and further education needed Reason for continued inpatient stay Substantial Risk for: med/psych decompensation Statement Statement: I have reviewed the history and physical and performed a pertinent examination on my patient. No changes have occurred unless specified. If the History and Physical was not performed prior to admission, the Hospitalist's service will be consulted for completing the admission physical. Time Spent With Patient Time: Total time managing care of this patient today ____ minutes.
[2024-09-30 09:15] LABS: Free T4 (Free Thyroxine) 1.09 ng/dL (0.71-1.85); Thyroid Stimulating Hormone 0.73 uIU/mL (0.32-4.0)
[2024-09-30 20:15] VITALS: BP 128/71; PULSE 86; RESP 18; TEMP 36.5; O2SAT 100
[2024-10-01 07:56] VITALS: BP 114/62; PULSE 91; RESP 16; TEMP 36.7; O2SAT 100
[2024-10-01 20:15] VITALS: BP 114/67; PULSE 80; RESP 16; TEMP 36.3; O2SAT 99
--- NOTE | 2024-10-01 23:36 | HO.PSYCHPN ---
Subjective Subjective Date of Service: 10/01/24 Reason For Visit: psychosis Subjective Notes: Conditional Voluntary Healthcare Proxy: No Guardianship: No Medical Problems Affecting Mental Status: No Interim History: Medical record and nursing notes reviewed; case discussed during rounds with team/nursing staff, and met with patient for supportive therapy/psychoeducation, as well as medication management. Slept well, was medication compliant, isolated himself, quiet, but visible at times. Able to advocate for himself. Been drinking ensure. Compliant with medications. Appeared to be disorganized, racing thoughts, anxious, to talk with this provider couple of times. Nursing staff had to write down what he has been received/ given in terms of medication to keep track. Flat affect, pleasant and cooperative. Educate patient on food with Latuda. Remind him that does no medication changes today. Medication Compliance: Yes Side effects from medications: No Attending Groups: Intermittent Review of Systems Acute medical concerns: No Medical Review of Systems: unchanged Review of Systems Review of Systems Elevated liver enzymes and rhabdomyolysis which are trending down. Will continue to monitor. Denies N/V. Yes all other systems are reviewed and are negative Mental Status Exam Mental Status Exam Narrative: Patient is alert and oriented, appears more aware of surrounding, He is anxious, appeared to be depressed, overwhelmed with information related to medical condition,. Denies suicidal thoughts, denies thoughts of hurting other people. Disorganized thoughts, but has been improved. Racing thoughts and anxios. Denies SI/SIB/HI/AVH. . Judgement and Insight: poor and impaired Diagnostics Vital Signs (24Hr): Vital Signs - 24 hr 10/01/24 07:56 10/01/24 20:15 Temperature 98.0 F 97.4 F Pulse Rate 91 80 Respiratory Rate 16 16 Blood Pressure 114/62 114/67 Pulse Oximetry 100 99 Oxygen Delivery Method Room Air Room Air Labs 10/02/24 07:01 Labs: Laboratory Results - last 48 hr 09/30/24 08:15 Sodium 141 Potassium 3.8 Chloride 104 Carbon Dioxide 30 H Anion Gap 11 L BUN 9 Creatinine 1.10 Estim Creat Clear Calc TNP Estimated GFR > 60 Random Glucose 98 Estimat Average Glucose 85 Hemoglobin A1c % 4.6 Calcium 8.9 Total Bilirubin 1.1 H AST 56 H ALT 107 H Alkaline Phosphatase 46 Total Protein 6.7 Albumin 4.4 Triglycerides 46 Cholesterol 116 LDL Cholesterol, Calc 57 HDL Cholesterol 50 TSH 0.73 Free T4 1.09 Medications Medications Current Medications Acetaminophen (Acetaminophen 325 Mg Tablet) 650 mg PO Q6H PRN PRN Reason: Headache/Pain, Scale 1-10 Last Admin: 10/01/24 17:13 Dose: 650 mg Al Hydroxide/Mg Hydroxide (Magnesium Hydrox/Alum Hydrox 30 Ml Oral.Susp) 30 ml PO Q6H PRN PRN Reason: Heartburn/Nausea Epinephrine (Epinephrine 1 Mg/Ml Vial) 0.3 mg IM DAILY PRN PRN Reason: anaphylaxis Haloperidol (Haloperidol 5 Mg Tablet) 5 mg PO BID [facility] Last Admin: 10/01/24 20:16 Dose: 5 mg Haloperidol (Haloperidol 0.5 Mg Tablet) 2.5 mg PO TID PRN PRN Reason: Agitation/anxiety Last Admin: 10/01/24 14:05 Dose: 2.5 mg Hydroxyzine HCl (Hydroxyzine Hcl 50 Mg Tablet) 50 mg PO Q6H PRN PRN Reason: mild anxiety Last Admin: 10/01/24 22:09 Dose: 50 mg Lorazepam (Lorazepam 0.5 Mg Tablet) 0.5 mg PO Q6H PRN PRN Reason: severe anxiety Last Admin: 09/30/24 21:27 Dose: 0.5 mg Lurasidone HCl (Lurasidone Hcl 20 Mg Tablet) 20 mg PO DAILY@1700 [facility] Last Admin: 10/01/24 17:12 Dose: 20 mg Magnesium Hydroxide (Milk Of Magnesia 30 Ml Oral.Susp) 30 ml PO DAILY PRN PRN Reason: Constipation Melatonin (Melatonin 3 Mg Tablet) 3 mg PO BEDTIME [facility] Last Admin: 10/01/24 20:16 Dose: 3 mg Nicotine Polacrilex (Nicotine Polacrilex 2 Mg Gum) 2 mg BUCCAL Q2H PRN PRN Reason: Nicotine Cravings Trazodone HCl (Trazodone Hcl 50 Mg Tablet) 50 mg PO BEDTIME MRX1 PRN PRN Reason: Insomnia Last Admin: 10/01/24 22:09 Dose: 50 mg Allergies Allergies Allergy/AdvReac Type Severity Reaction Status Date / Time tree nut Allergy Severe Anaphylaxis Verified 09/25/24 15:04 Peanut Butter Allergy Anaphylaxis Verified 09/25/24 15:04 soy Allergy Itching Verified 09/25/24 15:04 shellfish Allergy Severe Anaphylaxis Uncoded 09/25/24 15:04 egg white Allergy Itching Uncoded 09/25/24 15:04 Assessment & Plan Assessment & Plan (1) Bipolar disorder with psychotic features: Status: Acute Code(s): F31.9 - Bipolar disorder, unspecified Plan HPI: Patient is a 19 years old single black Vietnamese speaking male with hx of Bipolar with psychotic behaviors, asthma who [place] [facility] [place] presented via ambulance on a section 12 from home on 09/25. He has been off medication for 5-6 months, exhibit paranoid delusional states that his mother wanted to eat my heart . Reported that he experience hallucinations, and appeared to responding to internal stimuli. He was medically admitted due to severe rhabdomyolysis side and liver function. This provider met with patient on 09/29 at around 1715 and again on 09/30/24. He states that I was in psychosis. I can not tell realities verses dreams. I did not slept for 5 days . Now I feel drowsy, take giving medication before bringing me here . Reported that he has not taking medication after discharge from last year my doctor told me I do not have to take medication Formulation/clinical reasoning: None medication compliant the discharge from 1st break last year from . He become more paranoid, psychotic, and appeared to be depressed, increased anxiety and depression, decreased sleep and appetite. History of bipolar with psychotic behavior. Currently has no outpatient psychiatry or therapist. He will be benefit in restrictive environment for the start of medication, medication management, and for follow-up patient should be set up with Psychiatry to continue with the treatment. Hospital course: 09/30/24: Newly admitted, appeared to be paranoid, disorganized, with thought blocked. Anxious, flat affect, no hallucinations. Continue with Haldol 5 mg b.i.d. for psychosis which was started by this provider when he was on medical floor. Reduced Ativan from 1 mg 0.5 every 6 hours as needed due to drowsy. We will start on Latuda 20 mg at 17:00, even with food, with psychosis Reduce Haldol 5 mg to 2.5 mg. P.r.n. due to drowsy. Ordered ensure t.i.d. with meals for under weight 10/01/24: Slept well, was medication compliant, isolated himself, quiet, but visible at times. Able to advocate for himself. Been drinking ensure. Compliant with medications. Appeared to be disorganized, racing thoughts, anxious, to talk with this provider couple of times. Nursing staff had to write down what he has been received/ given in terms of medication to keep track. Flat affect, pleasant and cooperative. Educate patient on food with Latuda. Remind him that does no medication changes today. Continue with current plan. Labs work for tomorrow. Plan Total creatine [id number]. Continue to monitor for trending labs results. Elevated on liver function Patient on 15 minute checks for safety. Admitted to M3. CV. Work with treatment team to do collateral and refer to outpatient psychiatry. He has no one current time. Patient educated on: diagnosis, medication risk/benefits and therapeutic strategies Informed Consent: further education needed Reason for continued inpatient stay Substantial Risk for: med/psych decompensation Time Spent With Patient Time: Total time managing care of this patient today ____ minutes.
[2024-10-02 07:27] LABS: Alanine Aminotransferase 84 U/L (0-40); Albumin Level 4.7 g/dL (3.5-5.0); Alkaline Phosphatase 45 U/L (39-117); Anion Gap 12 (12-20); Aspartate Amino Transferase 36 U/L (5-37); Blood Urea Nitrogen 13 mg/dL (9-16); Calcium 9.2 mg/dL (8.4-10.2); Carbon Dioxide 27 mmol/L (22-29); Chloride 104 mmol/L (96-108); Estimated Glomerular Filt Rate > 60; Potassium 4.1 mmol/L (3.3-5.1); Sodium 139 mmol/L (135-145); Total Protein 7.1 g/dL (6.5-8.0)
[2024-10-02 08:00] VITALS: BP 74/35; PULSE 76; RESP 14; TEMP 36.8; O2SAT 98
[2024-10-02 20:00] VITALS: BP 122/57; PULSE 79; RESP 16; TEMP 36.6; O2SAT 98
--- NOTE | 2024-10-02 22:15 | HO.PSYCHPN ---
Subjective Subjective Date of Service: 10/02/24 Reason For Visit: psychosis Subjective Notes: 3 Day Healthcare Proxy: No Guardianship: No Medical Problems Affecting Mental Status: No Interim History: Medical record and nursing notes reviewed; case discussed during rounds with team/nursing staff, and met with patient for supportive therapy/psychoeducation, as well as medication management. Patient slept for 6 hours with broken sleep which also affected by napping during the day yesterday. He tried to sleep in the sensory room, however he said that he has been harder for him to sleep in bed. Plans will slept in his bed tonight. Patient is disorganized, thought blocks, anxious and depressed. However very pleasant upon approach, sister came into visit today. He is receptive with the medication plan. Denies pain, bowel movement today. He signed a 3 day notice, who is like confused between himself and he wants the treatment and wants to go home at the same time. But feeling like he has 3 day notice to have a feeling of control of his stay but willingly to stay longer necessary for medication management. Medication Compliance: Yes Side effects from medications: No Attending Groups: Yes Review of Systems Acute medical concerns: No Medical Review of Systems: unchanged Review of Systems Review of Systems Elevated liver enzymes and rhabdomyolysis which are trending down. Will continue to monitor. Denies N/V. Yes all other systems are reviewed and are negative Mental Status Exam Mental Status Exam Narrative: Patient is alert and oriented, appears more aware of surrounding, He is anxious, appeared to be depressed, overwhelmed with information related to medical condition,. Denies suicidal thoughts, denies thoughts of hurting other people. Disorganized thoughts, but has been improved. Racing thoughts and anxios. Denies SI/SIB/HI/AVH. . Judgement and Insight: poor and impaired Diagnostics Vital Signs (24Hr): Vital Signs - 24 hr 10/02/24 08:00 Temperature 98.3 F Pulse Rate 76 Respiratory Rate 14 Blood Pressure 74/35 L Pulse Oximetry 98 Oxygen Delivery Method Room Air Labs 10/02/24 07:01 Labs: Laboratory Results - last 48 hr 10/02/24 07:01 Sodium 139 Potassium 4.1 Chloride 104 Carbon Dioxide 27 Anion Gap 12 BUN 13 Creatinine 1.05 Estim Creat Clear Calc TNP Estimated GFR > 60 Random Glucose 97 Calcium 9.2 Total Bilirubin 1.2 H AST 36 ALT 84 H Alkaline Phosphatase 45 Total Protein 7.1 Albumin 4.7 Medications Medications Current Medications Acetaminophen (Acetaminophen 325 Mg Tablet) 650 mg PO Q6H PRN PRN Reason: Headache/Pain, Scale 1-10 Last Admin: 10/01/24 17:13 Dose: 650 mg Al Hydroxide/Mg Hydroxide (Magnesium Hydrox/Alum Hydrox 30 Ml Oral.Susp) 30 ml PO Q6H PRN PRN Reason: Heartburn/Nausea Benztropine Mesylate (Benztropine Mesylate 0.5 Mg Tablet) 0.5 mg PO BID REPLACED BY [facility] Last Admin: 10/02/24 20:53 Dose: 0.5 mg Epinephrine (Epinephrine 1 Mg/Ml Vial) 0.3 mg IM DAILY PRN PRN Reason: anaphylaxis Haloperidol (Haloperidol 5 Mg Tablet) 5 mg PO BID REPLACED BY [facility] Last Admin: 10/02/24 20:53 Dose: 5 mg Haloperidol (Haloperidol 0.5 Mg Tablet) 2.5 mg PO TID PRN PRN Reason: Agitation/anxiety Last Admin: 10/01/24 14:05 Dose: 2.5 mg Hydroxyzine HCl (Hydroxyzine Hcl 50 Mg Tablet) 50 mg PO Q6H PRN PRN Reason: mild anxiety Last Admin: 10/01/24 22:09 Dose: 50 mg Lamotrigine (Lamotrigine 25 Mg Tablet) 25 mg PO DAILY REPLACED BY [facility] Lorazepam (Lorazepam 0.5 Mg Tablet) 0.5 mg PO Q6H PRN PRN Reason: severe anxiety Last Admin: 10/02/24 21:49 Dose: 0.5 mg Lurasidone HCl (Lurasidone Hcl 40 Mg Tablet) 40 mg PO DAILY@1700 REPLACED BY [facility] Last Admin: 10/02/24 17:09 Dose: 40 mg Magnesium Hydroxide (Milk Of Magnesia 30 Ml Oral.Susp) 30 ml PO DAILY PRN PRN Reason: Constipation Melatonin (Melatonin 3 Mg Tablet) 9 mg PO BEDTIME REPLACED BY [facility] Last Admin: 10/02/24 21:49 Dose: 9 mg Nicotine Polacrilex (Nicotine Polacrilex 2 Mg Gum) 2 mg BUCCAL Q2H PRN PRN Reason: Nicotine Cravings Ondansetron HCl (Ondansetron Odt 4 Mg Tab.Rapdis) 4 mg TRANSLINGU Q6H PRN PRN Reason: Nausea and Vomiting Last Admin: 10/02/24 19:00 Dose: 4 mg Trazodone HCl (Trazodone Hcl 50 Mg Tablet) 50 mg PO BEDTIME MRX1 PRN PRN Reason: Insomnia Last Admin: 10/01/24 22:09 Dose: 50 mg Allergies Allergies Allergy/AdvReac Type Severity Reaction Status Date / Time tree nut Allergy Severe Anaphylaxis Verified 09/25/24 15:04 Peanut Butter Allergy Anaphylaxis Verified 09/25/24 15:04 soy Allergy Itching Verified 09/25/24 15:04 shellfish Allergy Severe Anaphylaxis Uncoded 09/25/24 15:04 egg white Allergy Itching Uncoded 09/25/24 15:04 Assessment & Plan Assessment & Plan (1) Bipolar disorder with psychotic features: Status: Acute Code(s): F31.9 - Bipolar disorder, unspecified Plan HPI: Patient is a 19 years old single black [place]ian speaking male with hx of Bipolar with psychotic behaviors, asthma who was seen in the [facility] [place] after be initially presented via ambulance on a section 12 from home on 09/25. He has been off medication for 5-6 months, exhibit paranoid delusional states that his mother wanted to eat my heart . Reported that he experience hallucinations, and appeared to responding to internal stimuli. He was medically admitted due to severe rhabdomyolysis side and liver function. This provider met with patient on 09/29 at around 1715 and again on 09/30/24. He states that I was in psychosis. I can not tell realities verses dreams. I did not slept for 5 days . Now I feel drowsy, take giving medication before bringing me here . Reported that he has not taking medication after discharge from last year my doctor told me I do not have to take medication Formulation/clinical reasoning: None medication compliant the discharge from 1st break last year from . He become more paranoid, psychotic, and appeared to be depressed, increased anxiety and depression, decreased sleep and appetite. History of bipolar with psychotic behavior. Currently has no outpatient psychiatry or therapist. He will be benefit in restrictive environment for the start of medication, medication management, and for follow-up patient should be set up with Psychiatry to continue with the treatment. Hospital course: 09/30/24: Newly admitted, appeared to be paranoid, disorganized, with thought blocked. Anxious, flat affect, no hallucinations. Continue with Haldol 5 mg b.i.d. for psychosis which was started by this provider when he was on medical floor. Reduced Ativan from 1 mg 0.5 every 6 hours as needed due to drowsy. We will start on Latuda 20 mg at 17:00, even with food, with psychosis Reduce Haldol 5 mg to 2.5 mg. P.r.n. due to drowsy. Ordered ensure t.i.d. with meals for under weight 10/01/24: Slept well, was medication compliant, isolated himself, quiet, but visible at times. Able to advocate for himself. Been drinking ensure. Compliant with medications. Appeared to be disorganized, racing thoughts, anxious, to talk with this provider couple of times. Nursing staff had to write down what he has been received/ given in terms of medication to keep track. Flat affect, pleasant and cooperative. Educate patient on food with Latuda. Remind him that does no medication changes today. Continue with current plan. Labs work for tomorrow. 10/02/24: Patient slept for 6 hours with broken sleep which also affected by napping during the day yesterday. He tried to sleep in the sensory room, however he said that he has been harder for him to sleep in bed. Plans will slept in his bed tonight. Patient is disorganized, thought blocks, anxious and depressed. However very pleasant upon approach, sister came into visit today. He is receptive with the medication plan. Denies pain, bowel movement today. He signed a 3 day notice, who is like confused between himself and he wants the treatment and wants to go home at the same time. But feeling like he has 3 day notice to have a feeling of control of his stay but willingly to stay longer necessary for medication management. Increase melatonin up to 9 mg at bedtime for insomnia. Started Lamictal 25 in the morning for mood. Increase Latuda from 20 to 40 tonight with dinner for depression/psychosis. Plan Total creatine kinase 4255. Continue to monitor for trending labs results. Elevated on liver function Patient on 15 minute checks for safety. Admitted to [facility]. The day notice on 10/05. Potential to rechecked for medication management. 10/02/24: Continued to improve in liver function, Patient educated on: diagnosis, medication risk/benefits and therapeutic strategies Informed Consent: understands and further education needed Reason for continued inpatient stay Substantial Risk for: med/psych decompensation Time Spent With Patient Time: Total time managing care of this patient today ____ minutes.
[2024-10-03 08:00] VITALS: BP 96/52; PULSE 75; RESP 16; TEMP 36.9; O2SAT 99
--- NOTE | 2024-10-03 14:48 | HO.PSYCHPN ---
Subjective Subjective Date of Service: 10/03/24 Reason For Visit: psychosis Interim History: calm, cooperative, pleasant. bipolar Dx. lamictal as mood stabilizer. agrees to DC lamictal and start lithium 450 BID. per staff, 3 day up 6th. used to be on clozaril. vomiting multiple times yesterday. thought blocking. calm. pleasant. depressed. paranoid. Mental Status Exam Mental Status Exam Narrative: Patient is alert and oriented. he is calm and cooperative, somewhat blunted, but linear and logical without overt paranoia or delusions. no SI/SIBI/HI/AVH expressed. Diagnostics Vital Signs (24Hr): Vital Signs - 24 hr 10/02/24 20:00 10/03/24 08:00 Temperature 97.8 F 98.4 F Pulse Rate 79 75 Respiratory Rate 16 16 Blood Pressure 122/57 L 96/52 L Pulse Oximetry 98 99 Oxygen Delivery Method Room Air Labs 10/02/24 07:01 Labs: Laboratory Results - last 48 hr 10/02/24 07:01 Sodium 139 Potassium 4.1 Chloride 104 Carbon Dioxide 27 Anion Gap 12 BUN 13 Creatinine 1.05 Estim Creat Clear Calc TNP Estimated GFR > 60 Random Glucose 97 Calcium 9.2 Total Bilirubin 1.2 H AST 36 ALT 84 H Alkaline Phosphatase 45 Total Protein 7.1 Albumin 4.7 Medications Medications Current Medications Acetaminophen (Acetaminophen 325 Mg Tablet) 650 mg PO Q6H PRN PRN Reason: Headache/Pain, Scale 1-10 Last Admin: 10/01/24 17:13 Dose: 650 mg Al Hydroxide/Mg Hydroxide (Magnesium Hydrox/Alum Hydrox 30 Ml Oral.Susp) 30 ml PO Q6H PRN PRN Reason: Heartburn/Nausea Benztropine Mesylate (Benztropine Mesylate 0.5 Mg Tablet) 0.5 mg PO BID COUNT INCLUDES THE [facility] Last Admin: 10/03/24 08:35 Dose: 0.5 mg Epinephrine (Epinephrine 1 Mg/Ml Vial) 0.3 mg IM DAILY PRN PRN Reason: anaphylaxis Haloperidol (Haloperidol 5 Mg Tablet) 5 mg PO BID COUNT INCLUDES THE [facility] Last Admin: 10/03/24 08:35 Dose: 5 mg Haloperidol (Haloperidol 0.5 Mg Tablet) 2.5 mg PO TID PRN PRN Reason: Agitation/anxiety Last Admin: 10/01/24 14:05 Dose: 2.5 mg Hydroxyzine HCl (Hydroxyzine Hcl 50 Mg Tablet) 50 mg PO Q6H PRN PRN Reason: mild anxiety Last Admin: 10/01/24 22:09 Dose: 50 mg [place] Carbonate ([place] Carbonate Er 450 Mg Tablet.Er) 450 mg PO BID COUNT INCLUDES THE [facility] Last Admin: 10/03/24 13:53 Dose: 450 mg Lorazepam (Lorazepam 0.5 Mg Tablet) 0.5 mg PO Q6H PRN PRN Reason: severe anxiety Last Admin: 10/02/24 21:49 Dose: 0.5 mg Lurasidone HCl (Lurasidone Hcl 40 Mg Tablet) 40 mg PO DAILY@1700 COUNT INCLUDES THE [facility] Last Admin: 10/02/24 17:09 Dose: 40 mg Magnesium Hydroxide (Milk Of Magnesia 30 Ml Oral.Susp) 30 ml PO DAILY PRN PRN Reason: Constipation Melatonin (Melatonin 3 Mg Tablet) 9 mg PO BEDTIME COUNT INCLUDES THE [facility] Last Admin: 10/02/24 21:49 Dose: 9 mg Nicotine Polacrilex (Nicotine Polacrilex 2 Mg Gum) 2 mg BUCCAL Q2H PRN PRN Reason: Nicotine Cravings Ondansetron HCl (Ondansetron Odt 4 Mg Tab.Rapdis) 4 mg TRANSLINGU Q6H PRN PRN Reason: Nausea and Vomiting Last Admin: 10/02/24 19:00 Dose: 4 mg Trazodone HCl (Trazodone Hcl 50 Mg Tablet) 50 mg PO BEDTIME MRX1 PRN PRN Reason: Insomnia Last Admin: 10/01/24 22:09 Dose: 50 mg Allergies Allergies Allergy/AdvReac Type Severity Reaction Status Date / Time tree nut Allergy Severe Anaphylaxis Verified 09/25/24 15:04 Peanut Butter Allergy Anaphylaxis Verified 09/25/24 15:04 soy Allergy Itching Verified 09/25/24 15:04 shellfish Allergy Severe Anaphylaxis Uncoded 09/25/24 15:04 egg white Allergy Itching Uncoded 09/25/24 15:04 Assessment & Plan Assessment & Plan (1) Bipolar disorder with psychotic features: Status: Acute Code(s): F31.9 - Bipolar disorder, unspecified Plan HPI: Patient is a 19 years old single black [place]ian speaking male with hx of Bipolar with psychotic behaviors, asthma who was seen in the [facility] [place] after be initially presented via ambulance on a section 12 from home on 09/25. He has been off medication for 5-6 months, exhibit paranoid delusional states that his mother wanted to eat my heart . Reported that he experience hallucinations, and appeared to responding to internal stimuli. He was medically admitted due to severe rhabdomyolysis side and liver function. This provider met with patient on 09/29 at around 1715 and again on 09/30/24. He states that I was in psychosis. I can not tell realities verses dreams. I did not slept for 5 days . Now I feel drowsy, take giving medication before bringing me here . Reported that he has not taking medication after discharge from [facility] last year my doctor told me I do not have to take medication Formulation/clinical reasoning: None medication compliant the discharge from 1st break last year from . He become more paranoid, psychotic, and appeared to be depressed, increased anxiety and depression, decreased sleep and appetite. History of bipolar with psychotic behavior. Currently has no outpatient psychiatry or therapist. He will be benefit in restrictive environment for the start of medication, medication management, and for follow-up patient should be set up with Psychiatry to continue with the treatment. Hospital course: 09/30/24: Newly admitted, appeared to be paranoid, disorganized, with thought blocked. Anxious, flat affect, no hallucinations. Continue with Haldol 5 mg b.i.d. for psychosis which was started by this provider when he was on medical floor. Reduced Ativan from 1 mg 0.5 every 6 hours as needed due to drowsy. We will start on Latuda 20 mg at 17:00, even with food, with psychosis Reduce Haldol 5 mg to 2.5 mg. P.r.n. due to drowsy. Ordered ensure t.i.d. with meals for under weight 10/01/24: Slept well, was medication compliant, isolated himself, quiet, but visible at times. Able to advocate for himself. Been drinking ensure. Compliant with medications. Appeared to be disorganized, racing thoughts, anxious, to talk with this provider couple of times. Nursing staff had to write down what he has been received/ given in terms of medication to keep track. Flat affect, pleasant and cooperative. Educate patient on food with Latuda. Remind him that does no medication changes today. Continue with current plan. Labs work for tomorrow. 10/02/24: Patient slept for 6 hours with broken sleep which also affected by napping during the day yesterday. He tried to sleep in the sensory room, however he said that he has been harder for him to sleep in bed. Plans will slept in his bed tonight. Patient is disorganized, thought blocks, anxious and depressed. However very pleasant upon approach, sister came into visit today. He is receptive with the medication plan. Denies pain, bowel movement today. He signed a 3 day notice, who is like confused between himself and he wants the treatment and wants to go home at the same time. But feeling like he has 3 day notice to have a feeling of control of his stay but willingly to stay longer necessary for medication management. Increase melatonin up to 9 mg at bedtime for insomnia. Started Lamictal 25 in the morning for mood. Increase Latuda from 20 to 40 tonight with dinner for depression/psychosis. 10/03: calm, cooperative, linear, logical. appears blunted, slowed. DC lamictal and start lithium for adequate mood stabilizer. otherwise continue current mgmt. 3-day up . Plan Total creatine kinase 4255. Continue to monitor for trending labs results. Elevated on liver function Patient on 15 minute checks for safety. Admitted to [facility]. The day notice on 10/05. Potential to rechecked for medication management. 10/02/24: Continued to improve in liver function, Reason for continued inpatient stay Substantial Risk for: inability to function Time Spent With Patient Time: Total time managing care of this patient today __25__ minutes.
--- NOTE | 2024-10-03 14:55 | MHC.CLN ---
NUTRITION DELETED ENSURE TID DUE TO SOY ALLERGY. PATIENT LIKES CHOCOLATE DRINK. RECOMMEND THAT PATIENT SELECTS CHOCOLATE MILK IF DESIRED.
--- NOTE | 2024-10-03 18:29 | PC.NURSE ---
Per Nitin and his mom, he is no longer allergic to soy or soy products. Allergies adjusted.
[2024-10-03 20:00] VITALS: BP 123/66; PULSE 76; RESP 16; TEMP 36.4; O2SAT 100
[2024-10-04 08:00] VITALS: BP 99/56; PULSE 80; RESP 14; TEMP 36.7; O2SAT 99
--- NOTE | 2024-10-04 12:06 | PM.PSYDC ---
DS: Providers Provider Date of Service: 10/04/24 Date of admission: 09/29/24 16:55 Date of discharge: 10/05/24 Primary care physician: Unknown Physician DS: Diagnosis Discharge Diagnosis (1) Bipolar disorder with psychotic features: Status: Acute DS: Medications Discharge Medications Home Medications: Home Medications ?Medication ?Instructions ?Recorded ?Confirmed epinephrine 0.3 mg/0.3 mL 0.3 ml IM DAILY PRN anaphylaxis 09/25/24 09/29/24 injection, auto-injector Previous Rx's ?Medication ?Instructions ?Recorded benztropine 0.5 mg tablet 0.5 mg PO BID 30 days #60 tabs 10/04/24 haloperidol 5 mg tablet 5 mg PO BID 30 days #60 tabs 10/04/24 lithium carbonate 450 mg 450 mg PO BID 30 days #60 tabs 10/04/24 tablet,extended release lurasidone 40 mg tablet (Latuda) 40 mg PO DAILY@1700 30 days #30 10/04/24 tabs melatonin 3 mg tablet 9 mg (3 x 3 mg) PO BEDTIME 30 days 10/04/24 #90 tabs trazodone 50 mg tablet 50 mg PO BEDTIME PRN Insomnia 30 10/04/24 days #30 tabs Mental Status Exam Mental Status Exam Narrative: Patient is alert and oriented. he is calm and cooperative, somewhat blunted, but linear and logical without overt paranoia or delusions. mood just normal. no SI/SIBI/HI/AVH. Data Data Completed and Pending Completed studies during hospitalization [Text1]: 09/30/24 10/02/24 08:15 07:01 Sodium 141 139 Potassium 3.8 4.1 Chloride 104 104 Carbon Dioxide 30 H 27 Anion Gap 11 L 12 BUN 9 13 Creatinine 1.10 1.05 Estim Creat Clear Calc TNP TNP Estimated GFR > 60 > 60 Random Glucose 98 97 Estimat Average Glucose 85 Hemoglobin A1c % 4.6 Calcium 8.9 9.2 Total Bilirubin 1.1 H 1.2 H AST 56 H 36 ALT 107 H 84 H Alkaline Phosphatase 46 45 Total Protein 6.7 7.1 Albumin 4.4 4.7 Triglycerides 46 Cholesterol 116 LDL Cholesterol, Calc 57 HDL Cholesterol 50 25-OH Vitamin D Total Pending 25-Hydroxy Vitamin D2 Pending 25-Hydroxy Vitamin D3 Pending TSH 0.73 Free T4 1.09 DS: Summary Hospital Course Hospital Course: per 09/30 admission note: HPI Subjective Notes: Herman Warning and Conditional Voluntary Narrative: Per care team note: Patient is a 19 years old single black Turkish speaking male [place] [facility] [place] be initially presented via ambulance on a section 12 from home on 09/25. He has been off medication for 5-6 months, exhibit paranoid delusional states that his mother wanted to eat my heart . Reported that he experience hallucinations, and appeared to responding to internal stimuli. He was medically admitted due to severe rhabdomyolysis side and liver function. This provider met with patient on 09/29 at around 1715 and again on 09/30/24. He states that I was in psychosis. I can not tell realities verses dreams. I did not slept for 5 days . Now I feel drowsy, take giving medication before bringing me here . Reported that he has not taking medication after discharge from last year my doctor told me I do not have to take medication . Denies trauma history, having no outpatient psychiatrist or therapist. Denies SI/SIB/HI/AVH. Reports history of SI. Denies suicide attempts. Reports increase in depression and anxiety rated 8/10 and 9/10. Poor sleep and poor appetite. He is under weight. He is who direct, we plan to get medication for psychiatric mental health. Past Psychiatric History: He has psychiatric admission one at [facility] last [place]. Currently has no outpatient providers. Stopped taking medication after discharge from . Medical Evaluation Reviewed: Yes ALT and AST trending down. [facility] Medical History Cannabis use with psychotic disorder Bipolar disorder with psychotic features Seasonal allergies Family History: Father-alcoholism, personality disordered. He has no contact with dad for the past 2 years. Paternal [id number] when pt was age 12. Reports that his mom and dad never got . Sister also diagnosed with bipolar. Currently taking medication: Lamictal and Latuda which helpful. Patient requested if he can take the medication like his sister Denies substance use in the family Social History: He is single having no children, never before. Mother is very supportive One older sister One twin sister Parents 2.5 years ago Pt has no contact with father who has a hx of alcohol use and personality disorder Student, [employer], accounting major-Grades have dropped significantly Works 2 jobs, one at [employer], one at [employer]. He is currently not work. 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 Substance History: Denies current substance use. History of using marijuana, last use 4 months ago. Occasionally has some alcohol. No alcohol issue. He does not smoke cigarettes. Trauma History: Denies Precis: Formulation/clinical reasoning: None medication compliant the discharge from 1st break last year from . He become more paranoid, psychotic, and appeared to be depressed, increased anxiety and depression, decreased sleep and appetite. History of bipolar with psychotic behavior. Currently has no outpatient psychiatry or therapist. He will be benefit in restrictive environment for the start of medication, medication management, and for follow-up patient should be set up with Psychiatry to continue with the treatment. Hospital course: 09/30/24: Newly admitted, appeared to be paranoid, disorganized, with thought blocked. Anxious, flat affect, no hallucinations. Continue with Haldol 5 mg b.i.d. for psychosis which was started by this provider when he was on medical floor. Reduced Ativan from 1 mg 0.5 every 6 hours as needed due to drowsy. We will start on Latuda 20 mg at 17:00, even with food, with psychosis Reduce Haldol 5 mg to 2.5 mg. P.r.n. due to drowsy. Ordered ensure t.i.d. with meals for under weight 10/01/24: Slept well, was medication compliant, isolated himself, quiet, but visible at times. Able to advocate for himself. Been drinking ensure. Compliant with medications. Appeared to be disorganized, racing thoughts, anxious, to talk with this provider couple of times. Nursing staff had to write down what he has been received/ given in terms of medication to keep track. Flat affect, pleasant and cooperative. Educate patient on food with Latuda. Remind him that does no medication changes today. Continue with current plan. Labs work for tomorrow. 10/02/24: Patient slept for 6 hours with broken sleep which also affected by napping during the day yesterday. He tried to sleep in the sensory room, however he said that he has been harder for him to sleep in bed. Plans will slept in his bed tonight. Patient is disorganized, thought blocks, anxious and depressed. However very pleasant upon approach, sister came into visit today. He is receptive with the medication plan. Denies pain, bowel movement today. He signed a 3 day notice, who is like confused between himself and he wants the treatment and wants to go home at the same time. But feeling like he has 3 day notice to have a feeling of control of his stay but willingly to stay longer necessary for medication management. Increase melatonin up to 9 mg at bedtime for insomnia. Started Lamictal 25 in the morning for mood. Increase Latuda from 20 to 40 tonight with dinner for depression/psychosis. 10/03: calm, cooperative, linear, logical. appears blunted, slowed. DC lamictal and start lithium for adequate mood stabilizer. otherwise continue current mgmt. 3-day up . 10/04: 3-day up tomorrow. continues somewhat slowed and constricted, but linear and logical. taking meds, no issues. denies any Sx or safety concerns. medications reviewed, reconciled, prescribed. 10/05: safe and stable overnight. discharged upon expiry of 3-day notice as pt was not committable. to present for labs thursday with f/u in bridge clinic next week. Time Spent with Patient Time attestation: Total time managing care of this patient today _35___ minutes. Discharge Plan Discharge Anticipated Discharge Date/Time: 10/05/24 11:00 Patient Disposition: Home, Self-Care Discharge Diagnosis: Bipolar I Disorder Referrals: FELIX DUGGAN, MEDICATION PROVIDER [Other] - 10/12/24 3:00 pm ROCCO SOSA, THERAPIST [Other] - 10/09/24 8:30 am Referral Note: IN PERSON TERE GLOVER. URGENT CARE COMPREHENSIVE ASSESSMENT [Other] - 10/09/24 9:00 am Referral Note: IN PERSON ALEXA CHOWDARY MEDICATION PROVIDER [Other] - 10/25/24 10:00 am Referral Note: IN PERSON [facility] [Provider Group] - 1 Week Referral Note: 10-04-24 [facility] was added to patients chart. Please call [phone] to schedule a follow up appt within 7-10 days of discharge. No release or PCP on file. Discharge Medications: New benztropine 0.5 mg Tablet 0.5 mg PO BID 30 Days Qty: 60 0RF trazodone 50 mg Tablet 50 mg PO BEDTIME PRN (Reason: Insomnia) 30 Days Qty: 30 0RF melatonin 3 mg Tablet 9 mg PO BEDTIME 30 Days Qty: 90 0RF lithium carbonate 450 mg Tablet Extended Release 450 mg PO BID 30 Days Qty: 60 0RF lurasidone [Latuda] 40 mg Tablet 40 mg PO DAILY@1700 30 Days Qty: 30 0RF Continued haloperidol 5 mg Tablet 5 mg PO BID 30 Days Qty: 60 0RF epinephrine 0.3 mg/0.3 mL auto-injector 0.3 ml IM DAILY PRN (Reason: anaphylaxis) Discontinued melatonin 3 mg PO BEDTIME haloperidol 5 mg Tablet 5 mg PO TID PRN (Reason: Agitation/anxiety) Qty: 1 0RF lorazepam 1 mg Tablet 1 mg PO Q6H PRN (Reason: severe anxiety) Qty: 1 0RF Discharge Orders: Discharge Order (Routine); Ordered 10/05/24 Ordered By: Adrien August Diet: Advance to usual diet Activity on Discharge: As tolerated Stand Alone Forms: Patient Portal Discharge page, Community Support Print Language: Unable To Collect Activity Restrictions/Additional Instructions: present to [facility] thursday morning prior to taking your medication to have your blood drawn. Care Plan Goals: remain safe ad stable in the outpatient treatment setting Health Concerns: none Plan of Treatment: take medications as prescribed, attend appointments as scheduled Assessment: not at imminent risk of harm to self or others Discharge Date/Time: 10/05/24 11:06
[2024-10-04 17:13] LABS: Vitamin D 25-OH, D2 <4 ng/mL; Vitamin D 25-OH, D3 17 ng/mL; Vitamin D 25-OH, Total 17 ng/mL (30-100)
[2024-10-04 18:46] LABS: Lithium 0.33 mmol/L (0.60-1.20)
[2024-10-04 18:55] LABS: Anion Gap 13 (12-20); Blood Urea Nitrogen 13 mg/dL (9-16); Calcium 9.7 mg/dL (8.4-10.2); Carbon Dioxide 28 mmol/L (22-29); Chloride 104 mmol/L (96-108); Estimated Glomerular Filt Rate > 60; Potassium 4.1 mmol/L (3.3-5.1); Sodium 141 mmol/L (135-145)
[2024-10-04 20:00] VITALS: BP 115/53; PULSE 69; RESP 16; TEMP 37.1; O2SAT 99
[2024-10-05 07:43] VITALS: BP 103/51; PULSE 68; RESP 16; TEMP 36.7; O2SAT 100
== END 2024-10-05 11:06 | disposition home or self-care (01) | DRG 753 ==
PROVIDERS: Admitting Provider Nurse Practitioner Psychiatric/Mental Health; Visit Provider Psychiatry & Neurology Psychiatry
DX: F31.9 Bipolar disorder, unspecified (principal); Z91.148 Patient's other noncompliance with medication regimen for other reason; Z79.899 Other long term (current) drug therapy
CPT/HCPCS: 36415; 80048; 80053; 80061; 80178; 82306; 82550; 83036; 84439; 84443

== ENCOUNTER → 2024-09-29 16:55 | Outpatient (BNV) | payer BC, MEDICAID, SELFPAY | PROVIDERS: Admitting Provider Nurse Practitioner Psychiatric/Mental Health; Visit Provider Nurse Practitioner Psychiatric/Mental Health | DX: F31.9 Bipolar disorder, unspecified (principal) | CPT/HCPCS: 90792; 99231; 99239 ==

== ENCOUNTER 2024-10-07 11:09 | Outpatient (REF) | payer BC, MEDICAID, SELFPAY ==
[2024-10-07 12:17] LABS: Lithium 0.46 mmol/L (0.60-1.20)
[2024-10-07 12:27] LABS: Anion Gap 9 (12-20); Blood Urea Nitrogen 14 mg/dL (9-16); Calcium 9.3 mg/dL (8.4-10.2); Carbon Dioxide 28 mmol/L (22-29); Chloride 107 mmol/L (96-108); Estimated Glomerular Filt Rate > 60; Potassium 4.0 mmol/L (3.3-5.1); Sodium 140 mmol/L (135-145)
== END 2024-10-07 11:10 | disposition home or self-care (01) ==
LOC: HO.LAB 11:09
PROVIDERS: Visit Provider Psychiatry & Neurology Psychiatry
DX: F31.9 Bipolar disorder, unspecified (principal)
CPT/HCPCS: 36415; 80048; 80178

== ENCOUNTER 2024-10-12 15:01 | Outpatient (AMB) | payer BC, MEDICAID, SELFPAY ==
--- OUTSIDE RECORDS SUMMARY | 2024-10-12 15:04 | XMS_ITS | Encounter Summary ---
Author Organization [facility] Address [address] [place] [address] Phone Care Team Providers Care Vessel Master Name Role Phone Cole Aly MD Primary Care Provider Encounter Details Date Type Department Care Team (Late st Contact Info) Description 05/05/2023 Transcribe Orders [address] [place] [address] Placido Pringle MD [address] [place] [address], [address] [place] [address] [email or web address] Social History Tobacco Use Types Packs/Day Years Used Date Smoking Tobacco: Never Assessed Education Answer Date Recorded Are you interested in more education? Not on tatiana e 06/27/2022 Are you concerned about learning? Not on file 06/27/2022 No 06/27/2022 No 06/27/2022 Digital Access Answer Date Recorded No 07/28/2022 No 07/28/2022 Reliable internet access at home? Not on file 07/28/2022 Device with a working camera? Not on file Sex and Gender Information Value Date Recorded Sex Assigned at Male 09/23/2024 6:15 PM EDT Legal Sex Male 8:43 PM EDT Gender Identity Male 09/23/2024 6:15 PM EDT Sexual Orientation Straight 09/23/2024 6: 15 PM EDT documented as of this encounter Plan of Treatment Not on file documented as of this encounter Visit Diagnoses Not on filedocumented in this encounter Care Teams Vessel Master Relationship Specialty Start Date End Date Cole Aly MD [address] [place] [address], [address] [place] [address] [email or web address] PCP - General 12/16/16 documented as of this encounter Additional Source Comments The information contained in this document represents components of the legal health record. It is not the complete legal health record.[facility]
--- NOTE | 2024-10-31 09:43 | MHC.OFFVISPS ---
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: No Allergies tree nut Allergy (Severe, Verified 09/25/24 15:04) Anaphylaxis Peanut Butter Allergy (Verified 09/25/24 15:04) Anaphylaxis shellfish Allergy (Severe, Uncoded 09/25/24 15:04) Anaphylaxis egg white Allergy (Uncoded 09/25/24 15:04) Itching Medication List - Last Reconciled 10/31/24 by Shelli Hoffman, AYLIN benztropine 0.5 mg PO BID 30 days epinephrine 0.3 mL IM DAILY PRN haloperidol 5 mg PO BEDTIME 30 days lithium carbonate ER 450 mg PO DAILY 30 days lurasidone (Latuda) 40 mg PO DAILY@1700 30 days lurasidone (Latuda) 20 mg PO DAILY melatonin 9 mg (3 x 3 mg) PO BEDTIME 30 days HPI- Psychiatric Chief Complaint: bridge appt from [facility] HPI Narrative: 10/12/24 Bridge Appt [id number] Brian reports he has transferred from [employer] to [employer] [facility] [employer] beginning in October. 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 Reports medication partial compliance- [place] tastes too salty-it is too high so I am not taking it. Reports poor visual focus, sensitive to bright lights, my eyes feel different (last eye exam 2023 was WNL he reports). I will take one pill a day, no more. Reports no adverse effects from Latuda, agrees to titration to 60 mg and is not using Haldol, however agrees to comply if dosage is decreased and we will to 5 mg daily. Not using Trazodone ans asks that we discontinue this. Reports feeling an increase in motivation when not taking medications. When on medications reports amotivation, poor focus, needing to rest more, no will to do school work, not wanting to be with friends or play video games. I feel different, bad . Past Psychiatric History: He has psychiatric admission one at [facility]- M[facility] last year, recent [facility] admit. Currently has no outpatient providers. Stopped taking medication after discharge from . Subjective Subjective Subjective Medication Compliance: Intermittent Side effects from medications: Yes (as noted) Review of Systems Medical Review of Systems: unchanged Review of Systems Review of Systems Denies Mental Status Exam Mental Status Exam Patient Appearance: Appropriate Patient Orientation: Person, Place, Time and Situation Level of Consciousness: Alert Patient Behavior: Guarded, Talkative and Good Eye Contact Mood Description: Constricted Affect Description: Constricted Patient Cognition Impaired: No Ability to Follow Directions: Good Speech Pattern: Spontaneous Speech Memory Description: Episodic Impaired Hallucinations: None (denies) Delusions: Paranoid Ideation (around medications, side effects) Thought Process: Distracted and Goal Oriented Thought Content: positive for Circumstantial, positive for Goal Oriented and positive for Suicidal Ideation (denies) Depressive Symptoms: Thoughts of /Suicide (denies) Judgement: Fair Assessment and Plan Assessment & Plan (1) Bipolar disorder with psychotic features: Status: Acute Code(s): F31.9 - Bipolar disorder, unspecified (2) Cannabis use with psychotic disorder: Status: Acute Code(s): F12.959 - Cannabis use, unspecified with psychotic disorder, unspecified Plan Review of medications with Nitin. He will accept the dosage changes listed below. Agreed to follow up diagnostics next week, CMP and [place] level. Medications: New lurasidone (Latuda) must administer with food (at least 350 calories) Total dosage 60 mg daily. Pt has 40 mg tablets at home he reports. 20 mg PO DAILY 30 tabs 0RF Changed From lithium carbonate ER 450 mg PO BID 30 days 60 tabs 0RF To lithium carbonate ER 450 mg PO DAILY 30 tabs 0RF 30 days From haloperidol 5 mg PO BID 30 days 60 tabs 0RF To haloperidol 5 mg PO BEDTIME 30 tabs 0RF 30 days Discontinued trazodone Discontinued Reason: Doctor's Order 50 mg PO BEDTIME 30 days PRN 30 tabs 0RF Insomnia Orders: Orders Comprehensive Met. Panel 10/19/24 F31.9 - Bipolar disorder, unspecified [place] 10/19/24 F31.9 - Bipolar disorder, unspecified Counseling and coordination of Care Medication management counseling: Effectiveness, Side effects, Dosing range, Duration, Drug interaction and Adherence Details: I spent [] minutes reviewing the record, seeing the patient and documenting in the medical record. Counseling provided to the patient/caregiver as outlined below. Addressed patient/caregiver concerns regarding current medication regime including effective adherence. Addressed patient/caregiver concerns regarding diagnosis and prognosis including accuracy of diagnosis, prognosis over time, impact of diagnosis. Addressed patient/caregiver concerns regarding impact of recent stressors. [facility] Medical History Cannabis use with psychotic disorder Bipolar disorder with psychotic features Seasonal allergies Social History Household Members: Family Household Members Other:: one room mate Housing: House Housing Other:: Dorm Do you presently have visiting nurse or other home services: No Comment: 1:[address] Patient Tobacco Use Status: Never used Tobacco e-Cigarette/Vaping Use: Never Used Second Hand Smoke Exposure: No Substance Use Type: Marijuana service: No Sexual orientation: Decline to Answer Social History: He is single having no children, never before. Mother is very supportive One older sister One twin sister Parents 2.5 years ago Pt has no contact with father who has a hx of alcohol use and personality disorder Former Student, 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, one at [employer]. Currently looking. He is currently not work. 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 Substance History: Denies current substance use. History of using marijuana, last use 4 months ago. Occasionally has some alcohol. No alcohol issue. He does not smoke cigarettes. Trauma History: Denies Coding Level of Care Code Est Pt Level 3 (20121) Diagnoses Bipolar disorder with psychotic features F31.9 Cannabis use with psychotic disorder F12.959
== END 2024-10-12 16:29 | disposition home or self-care (01) ==
PROVIDERS: PCP Pediatrics; Visit Provider Clinical Nurse Specialist Psychiatric/Mental Health, Adult
DX: F31.9 Bipolar disorder, unspecified (principal); F12.959 Cannabis use, unspecified with psychotic disorder, unspecified
CPT/HCPCS: 99213

== ENCOUNTER 2024-10-19 11:27 | Outpatient (REF) | payer BC, MEDICAID, SELFPAY ==
--- OUTSIDE RECORDS SUMMARY | 2024-10-19 12:48 | XMS_ITS | Clinical Summary ---
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 from Last 3 Months Social History Tobacco Use Types Packs/Day Years Used Date Smoking Tobacco: Never Assessed Sex and Gender Information Value Date Recorded Sex Assigned at Not on file Legal Sex Male 10:46 AM EDT Gender Identity Not on file Sexual Orientation Not on file Plan of Treatment Health Maintenance Due Date Last Done Comments Chlamydia and Gonorrhea Screening 2004 Depression Screening 2004 HIV Screening 2004 SDOH Screening 2004 Disability Screening 2004 Alcohol/Substance Use Screening 2016 Tobacco Screening 2016 Family Planning (PISQ) 07/13/2019 HPV Vaccines (1 - Male 3-dos e series) 07/13/2019 Meningococcal B Vaccine (1 o f 2 - Standard) 2020 Hepatitis C Screening 2022 DTaP/Tdap/Td Vaccines (1 - Tdap) 07/13/2023 Hepatitis B Vaccines (1 of 3 - 19+ 3-dose series) 07/13/2023 COVID-19 Vaccine (1 - 2023-2 5 season) 2023 Influenza Vaccine (#1) 2024 Zoster Vaccines (1 of 2) 2054 RSV Patients and Pa tients Aged 60 years or older (1 - 1-dose 75+ series) 07/13/2079 HIB Vaccines Aged Out No longer eligi ble based on patient's age to complete this topic Hepatitis A Vaccines Aged Out No long er eligible based on patient's age to complete this topic IPV Vaccines Aged Out No longer eligi ble based on patient's age to complete this topic Meningococcal Vaccine Aged Out No lara cheko eligible based on patient's age to complete this topic Pneumococcal Vaccine: Pediat rics (0 to 5 Years) and At-Risk Patients (6 to 49) Years Aged Out No longer eligible b ased on patient's age to complete this topic RSV under 20 months Aged Out No longe r eligible based on patient's age to complete this topic Rotavirus Vaccines Aged Out No longer eligible based on patient's age to complete this topic Insurance [facility] HMO [facility] STANDARD
[2024-10-19 12:51] LABS: Lithium 0.28 mmol/L (0.60-1.20)
[2024-10-19 13:00] LABS: Alanine Aminotransferase 52 U/L (0-40); Albumin Level 4.8 g/dL (3.5-5.0); Alkaline Phosphatase 48 U/L (39-117); Anion Gap 10 (12-20); Aspartate Amino Transferase 26 U/L (5-37); Blood Urea Nitrogen 10 mg/dL (9-16); Calcium 9.4 mg/dL (8.4-10.2); Carbon Dioxide 31 mmol/L (22-29); Chloride 104 mmol/L (96-108); Estimated Glomerular Filt Rate > 60; Potassium 4.2 mmol/L (3.3-5.1); Sodium 141 mmol/L (135-145); Total Protein 7.0 g/dL (6.5-8.0)
== END 2024-10-19 11:28 | disposition home or self-care (01) ==
LOC: HO.LAB 11:27
PROVIDERS: PCP Pediatrics; Visit Provider Clinical Nurse Specialist Psychiatric/Mental Health, Adult
DX: F31.9 Bipolar disorder, unspecified (principal)
CPT/HCPCS: 36415; 80053; 80178